=== PATIENT | female | born 1945 | race Caucasian/White ===

== ENCOUNTER 2016-06-25 19:32 | Emergency (ER) | payer MEDICARE, BC ==
[2016-06-25 19:40] VITALS: TEMP 96.9
--- NOTE | 2016-06-25 20:04 | ED ---
General Adult HPI - General Chief complaint: Extremity Injury, Lower Stated complaint: HIP PAIN Time Seen by Provider: 06/25/16 19:46 Source: EMS, RN notes reviewed Mode of arrival: EMS Limitations: no limitations - History of Present Illness Initial comments: This is a 71-year-old female who states that she fell while using the bathroom last Friday. Patient states she was not having pain until yesterday so she went to [facility]. [facility] ordered an MRI of the right hip. Patient states she never got the results of this MRI. Patient states she presents today because her pain in her right hip is worse. Patient has been able to ambulate but this is painful. Patient states the pain starts in the posterior right hip. Patient states the pain radiates down the right leg to the right thigh. Patient denies any numbness/weakness or tingling to the bilateral lower extremities. Patient states she took 2 Vicodin today that she had from 4 years ago today but this did not help the pain. Patient denies any back pain today. Patient denies any re-injury of the right hip. Patient denies any recent fever, chills, shortness breath, chest pain, abdominal pain, nausea/vomiting/diarrhea, hematuria, headache, or visual changes, or any other complaints. - Related Data Home Medications Medication Instructions Recorded Confirmed ALPRAZolam [Xanax] 0.5 mg PO TID PRN 10/24/15 06/25/16 Albuterol Sulfate [Proair Hfa] 1 - 2 puff INHALATION RT-Q6H PRN 10/24/15 Clopidogrel [Plavix] 75 mg PO DAILY 10/24/15 06/25/16 DULoxetine HCL [Cymbalta] 60 mg PO QAM 10/24/15 06/25/16 Diltiazem Cd [Cardizem Cd] 120 mg PO QAM 10/24/15 06/25/16 Docusate [Colace] 200 mg PO HS 10/24/15 06/25/16 Levalbuterol HCl [Xopenex] 1.25 mg INHALATION RT-QID PRN 10/24/15 06/25/16 Mesalamine [Asacol Hd] 800 mg PO BID 10/24/15 06/25/16 Montelukast [Singulair] 10 mg PO HS 10/24/15 06/25/16 Simvastatin [Zocor] 20 mg PO HS 10/24/15 06/25/16 metFORMIN HCL 1,000 mg PO BID 10/24/15 06/25/16 Triamterene-Hctz 37.5-25Mg 1 cap PO DAILY 06/25/16 06/25/16 [Dyazide 37.5-25 Capsule] Previous Rx's Medication Instructions Recorded HYDROcodone/APAP 5-325MG [[place] 1 tab PO Q6HR #12 tab 06/25/16 5-325] predniSONE 20 mg PO DAILY 3 Days 06/25/16 Allergies Allergy/AdvReac Type Severity Reaction Status Date / Time Iodine and Iodide Containing Allergy Rash/Hives Verified 06/25/16 20:07 Produc Sulfa (Sulfonamide Allergy Rash/Hives Verified 06/25/16 20:07 Antibiotics) adhesive AdvReac red skin, Verified 06/25/16 20:07 blisters Review of Systems ROS Statement: Those systems with pertinent positive or pertinent negative responses have been documented in the HPI. ROS Other: All systems not noted in ROS Statement are negative. Past Medical History Past Medical History: COPD, CVA/TIA, Diabetes Mellitus, Eye Disorder, Hyperlipidemia, Myocardial Infarction ([place]), Osteoarthritis (OA), Vascular Disorder Last Myocardial Infarction Date:: 2013 History of Any Multi-Drug Resistant Organisms: None Reported Past Surgical History: Adenoidectomy, Coronary Bypass/CABG, Joint Replacement, Orthopedic Surgery, Tonsillectomy Additional Past Surgical History / Comment(s): CABG x 2-triple & quad bypass, aortobifemoral bypass, right shoulder surg., right knee replaced, foot surg., eye surg., arthroscopy knee, bilateral carotidendarterectomy Past Anesthesia/Blood Transfusion Reactions: Postoperative Nausea & Vomiting ( PONV) Past Psychological History: No Psychological Hx Reported Smoking Status: Former smoker Past Alcohol Use History: None Reported Additional Past Alcohol Use History / Comment(s): quit smoking 10 yrs. ago, smoked 1ppd for 50 yrs. Past Drug Use History: None Reported - Past Family History Mother Family Medical History: No Reported History General Exam - General Exam Comments Initial Comments: General: The patient is awake and alert, in no distress, and does not appear acutely ill. Neck: The neck is supple, there is no tenderness or JVD. Cardiovascular: There is a regular rate and rhythm. No murmur, rub or gallop is appreciated. Respiratory: Lungs are clear to auscultation, respirations are non-labored, breath sounds are equal. No wheezes, stridor, rales, or rhonchi. Musculoskeletal: There is tenderness to palpation of the right posterior hip. There is no tenderness to palpation of the lumbar spine or lumbar paraspinal muscles. Full range of motion, strength 5/5 and Sensation intact. Posterior tibial pulses 2+ bilaterally. Capillary refill is normal at less than 2 seconds. Neurological: A&O x 3. CN II-XII intact, There are no obvious motor or sensory deficits. Coordination appears grossly intact. Speech is normal. Skin: Skin is warm and dry and no rashes or lesions are noted. Psychiatric: Normal mood and affect. Limitations: no limitations Course Vital Signs 06/25/16 06/25/16 19:34 21:39 Temperature 96.9 F L Pulse Rate 103 H 101 H Respiratory 20 18 Rate Blood Pressure 131/73 102/64 O2 Sat by Pulse 96 Oximetry Medical Decision Making - Medical Decision Making This is a 71-year-old female presents with right hip pain 1 week. On physical exam there is tenderness to palpation of the right posterior hip. There is no tenderness to palpation of the lumbar spine or lumbar paraspinal muscles. Full range of motion, strength 5/5 and Sensation intact. Posterior tibial pulses 2+ bilaterally. Capillary refill is normal at less than 2 seconds. Patient had previous MRIs done yesterday to the right hip at [facility]. These were uploaded and reviewed and reports were retrieved showing: X- ray right hip: Mild degenerative osteoarthritic changes right hip. No acute fractures or dislocations are evident. Report read by Dr. Blue, X-ray pelvis : No acute abnormality evident. Report read by Dr. Blue, MRI right hip without contrast: There is mild hypertrophic osteoarthritis. No fracture. No evidence of avascular necrosis. Reported by Dr. Serrato, An x-ray of the chest was also done yesterday before MRI showing no acute process. Reported by Dr. Yo. I discussed the results with patient and family at length. Patient was given IM Dilaudid in the [facility] today with pain relief. Discussed that this could be pain from sciatic nerve. I discussed stretches that could be helpful. I discussed that patient will be put on a course of prednisone and given a prescription for [place]. I discussed ice or warm heating pads to the area. I discussed return parameters. I discussed the importance of close follow-up with her primary care physician. I discussed the patient should return to the [facility] for any worsening symptoms or for any further concerns. Patient and family were receptive to this plan and patient will be discharged home. I discussed this case with Dr. Lorenzana who agrees with plan as stated above. Disposition Clinical Impression: Sciatica of right side Disposition: HOME SELF-CARE Condition: Good Instructions: Sciatica (ED) Additional Instructions: Please use medications as prescribed. Please perform stretching exercises as discussed. Please follow-up with primary care physician tomorrow. Please return to the [facility] for any worsening symptoms or for any further concerns. Prescriptions: HYDROcodone/APAP 5-325MG [[place] 5-325] 1 tab PO Q6HR #12 tab predniSONE 20 mg PO DAILY 3 Days Referrals: Sung Gaffney MD [Primary Care Provider] - 1-2 days
[2016-06-25] MEDS ORDERED: HYDROcodone/APAP 5-325MG 1 EACH TAB PO STA (20:34)
[2016-06-25] MEDS ORDERED: HYDROmorphone 1 MG/ML 1 ML SYRINGE IM STA (20:42)
[2016-06-25] MEDS ORDERED: ONDANSETRON ODT 4 MG TAB PO STA (20:57)
[2016-06-25 21:40] VITALS: BP 102/64; PULSE 101; RESP 18
== END 2016-06-25 21:40 | disposition home or self-care (01) ==
LOC: EC 19:32
DX: M54.31 Sciatica, right side (principal); W19.XXXA Unspecified fall, initial encounter; E11.9 Type 2 diabetes mellitus without complications; J44.9 Chronic obstructive pulmonary disease, unspecified; E78.5 Hyperlipidemia, unspecified; M19.90 Unspecified osteoarthritis, unspecified site; I25.2 Old myocardial infarction; Z79.02 Long term (current) use of antithrombotics/antiplatelets; Z79.84 Long term (current) use of oral hypoglycemic drugs; Z79.899 Other long term (current) drug therapy; Z88.2 Allergy status to sulfonamides; Z88.8 Allergy status to other drugs, medicaments and biological substances; Z86.73 Personal history of transient ischemic attack (TIA), and cerebral infarction without residual deficits; Z87.891 Personal history of nicotine dependence
CPT/HCPCS: 99283; 96372; J1170

== ENCOUNTER 2016-08-07 23:00 | Emergency (ER) | payer MEDICARE, BC ==
--- NOTE | 2016-08-08 00:11 | ED ---
General Adult HPI - General Chief complaint: Fall Stated complaint: FAll/Head Injury Time Seen by Provider: 08/07/16 23:59 Source: patient, family, RN notes reviewed Mode of arrival: ambulatory Limitations: no limitations - History of Present Illness Initial comments: Chief complaint and history of present illness a 71-year-old female reports that she stumbled while going up on a step falling backwards hitting the back of her head in the left occipital region on the coffee table. No loss of consciousness no nausea no vomiting no seizure activity. Patient is on Plavix because of previous heart surgery. - Related Data Home Medications Medication Instructions Recorded Confirmed ALPRAZolam [Xanax] 0.5 mg PO TID PRN 10/24/15 08/07/16 Albuterol Sulfate [Proair Hfa] 1 - 2 puff INHALATION RT-Q6H PRN 10/24/15 Clopidogrel [Plavix] 75 mg PO DAILY 10/24/15 08/07/16 DULoxetine HCL [Cymbalta] 60 mg PO QAM 10/24/15 08/07/16 Diltiazem Cd [Cardizem Cd] 120 mg PO QAM 10/24/15 08/07/16 Docusate [Colace] 200 mg PO HS 10/24/15 08/07/16 Levalbuterol HCl [Xopenex] 1.25 mg INHALATION RT-QID PRN 10/24/15 08/07/16 Mesalamine [Asacol Hd] 800 mg PO BID 10/24/15 08/07/16 Montelukast [Singulair] 10 mg PO HS 10/24/15 08/07/16 Simvastatin [Zocor] 20 mg PO HS 10/24/15 08/07/16 metFORMIN HCL 1,000 mg PO BID 10/24/15 08/07/16 Triamterene-Hctz 37.5-25Mg 1 cap PO DAILY 06/25/16 08/07/16 [Dyazide 37.5-25 Capsule] Previous Rx's Medication Instructions Recorded HYDROcodone/APAP 5-325MG [[place] 1 tab PO Q6HR #12 tab 06/25/16 5-325] predniSONE 20 mg PO DAILY 3 Days 06/25/16 Allergies Allergy/AdvReac Type Severity Reaction Status Date / Time Iodine and Iodide Containing Allergy Rash/Hives Verified 08/07/16 23:12 Produc Sulfa (Sulfonamide Allergy Rash/Hives Verified 08/07/16 23:12 Antibiotics) adhesive AdvReac red skin, Verified 08/07/16 23:12 blisters Review of Systems ROS Statement: Those systems with pertinent positive or pertinent negative responses have been documented in the HPI. Review of systems. mild headache to the left occipital region, no visual acuity changes no stiff neck or neck pain no chest pain shortness breath GI/ problems no neuro deficits. Balance is good. Alert and oriented. All systems are reviewed. Past medical problems include COPD, TIA, diabetes mellitus, bilateral cataracts removed. She also has had history of hyperlipidemia PR on Plavix with CABG twice. Also osteoarthritis. Surgeries include tonsils and adenoids, aortobifem , carotids, coronary bypass graft twice, joint replacement,. Family history no cancers. Patient quit smoking 12 years ago denies alcohol use. ROS Other: All systems not noted in ROS Statement are negative. Past Medical History Past Medical History: COPD, CVA/TIA, Diabetes Mellitus, Eye Disorder, Hyperlipidemia, Myocardial Infarction ([place]), Osteoarthritis ([place]), Vascular Disorder Last Myocardial Infarction Date:: 2013 History of Any Multi-Drug Resistant Organisms: None Reported Past Surgical History: Adenoidectomy, Coronary Bypass/CABG, Joint Replacement, Orthopedic Surgery, Tonsillectomy Additional Past Surgical History / Comment(s): CABG x 2-triple & quad bypass, aortobifemoral bypass, right shoulder surg., right knee replaced, foot surg., eye surg., arthroscopy knee, bilateral carotidendarterectomy Past Anesthesia/Blood Transfusion Reactions: Postoperative Nausea & Vomiting ( PONV) Past Psychological History: No Psychological Hx Reported Smoking Status: Former smoker Past Alcohol Use History: None Reported Additional Past Alcohol Use History / Comment(s): quit smoking 10 yrs. ago, smoked 1ppd for 50 yrs. Past Drug Use History: None Reported - Past Family History Mother Family Medical History: No Reported History General Exam - General Exam Comments Initial Comments: General: The patient is awake and alert, in no distress, and does not appear acutely ill. Here because she is on Plavix and she fell backwards bumping her head. Vital signs show temperature 97.6 pulse 91 respiratory rate 20 pulse ox 97% room air blood pressure 102/67 Eye: Pupils are equal, round and reactive to light, extra-ocular movements are intact ; there is normal conjunctiva bilaterally. No signs of icterus. Evidence of bilateral cataract surgery. Ears, nose, mouth and throat: There are moist mucous membranes and no oral lesions. There is a bump noted to the left occipital region Neck: The neck is supple, there is no tenderness , no carotid bruit. Cardiovascular: There is a regular rate and rhythm. No murmur, rub or gallop is appreciated. Respiratory: Lungs are clear to auscultation, respirations are non-labored, breath sounds are equal. No wheezes, stridor, rales, or rhonchi. Back: No back pain Musculoskeletal: Normal range of motion upper and lower extremities. Neurological: CN II-XII intact, There are no obvious motor or sensory deficits. Coordination appears grossly intact. Speech is normal. No focal or lateralizing findings. Skin: Skin is warm and dry and no rashes or lesions are noted. Limitations: no limitations Course Vital Signs 08/07/16 23:10 Temperature 97.6 F Pulse Rate 91 Respiratory 20 Rate Blood Pressure 102/67 O2 Sat by Pulse 97 Oximetry Medical Decision Making - Medical Decision Making CT the brain and cervical spine were done and reviewed by radiologist; the entire report was reviewed and the radiologist's final impression is; #1 there is no acute fracture or dislocation evident in the cervical spine. He degenerative disc disease changes at C5-C6 as discussed in the body of the report. #2 no acute intracranial hemorrhage, mass effect, or midline shift seen. Mild atrophic changes of brain. No significant change in the brain since previous study. As read by Dr. Mas Patient be advised to apply ice to her head Tylenol for pain. Follow-up with family physician return emergency room as needed. Disposition Clinical Impression: Fall, Scalp contusion Disposition: HOME SELF-CARE Condition: Fair Instructions: Fall Prevention for Older Adults (ED), Contusion in Adults (ED) Additional Instructions: Apply ice to the bump. Use Tylenol for pain. Follow-up with family physician Time of Disposition: 00:55
--- NOTE | 2016-08-08 00:49 | CT ---
EXAMINATION TYPE: CT brain tessa wo con DATE OF EXAM: 08/08/2016 12:32 AM COMPARISON: CT brain 09/08/2011 HISTORY: FALL, ON BLOOD THINNERS CT DLP: 1359.40 mGycm Automated exposure control for dose reduction was used. TECHNIQUE: CT scan of the head and cervical spine are performed without contrast. FINDINGS: There is evidence of small left occipital cephalohematoma measuring approximately 1.7 x 2.1 cm. No de finite depressed skull fracture is noted including the left occipital area. There is no acute intracranial hemorrhage, mass effect, or midline shift identified. The cortical sul ci are prominent with age-related atrophic changes of brain. No significant ventricular dilatation i s noted. Mild chronic white matter ischemic changes are noted in the periventricular white matter. Th e globes are intact and the visualized sinuses are clear. Cervical spine is visualized in its entirety from C1 through upper thoracic levels and demonstrates s atisfactory alignment without evidence of acute fracture or dislocation. Prevertebral soft tissue ap pears within normal limits. The C1-C2 articulation is unremarkable. Mild to moderate degenerative disc disease changes and the disc osteophyte complexes are noted at the level of C5-C6 with mild neural foramina narrowing more on the left side with possible nerve root co mpromise on the left side and with mild canal narrowing. Rest of the disc spaces showed no significan t disc herniation or canal narrowing. There is generalized osteopenia. IMPRESSION: 1. There is no acute fracture or dislocation evident in the cervical spine. Degenerative disc disease changes at C5-C6 as described above.. 2. No acute intracranial hemorrhage, mass effect, or midline shift is seen. Mild atrophic changes of brain. No significant change in the brain since previous study.
[2016-08-08 01:06] VITALS: BP 114/57; PULSE 90; RESP 18; TEMP 97.8
== END 2016-08-08 01:08 | disposition home or self-care (01) ==
LOC: EC 23:00
DX: S00.03XA Contusion of scalp, initial encounter (principal); E78.5 Hyperlipidemia, unspecified; E11.9 Type 2 diabetes mellitus without complications; I25.2 Old myocardial infarction; M19.90 Unspecified osteoarthritis, unspecified site; M50.322 Other cervical disc degeneration at C5-C6 level; W01.190A Fall on same level from slipping, tripping and stumbling with subsequent striking against furniture, initial encounter; Z95.1 Presence of aortocoronary bypass graft; Z79.02 Long term (current) use of antithrombotics/antiplatelets; Z79.899 Other long term (current) drug therapy; Z79.84 Long term (current) use of oral hypoglycemic drugs; Z91.048 Other nonmedicinal substance allergy status; Z87.891 Personal history of nicotine dependence; Z88.8 Allergy status to other drugs, medicaments and biological substances; Z88.2 Allergy status to sulfonamides
CPT/HCPCS: 70450; 72125; 99284

== ENCOUNTER 2018-03-02 10:37 | Day surgery (SDC) | payer MEDICARE, BC ==
[2018-03-02] MEDS ORDERED: ceFAZolin IN SWFI 2 GM/20 ML SYRINGE IVP STA (11:54)
[2018-03-02] MEDS ORDERED: LACTATED RINGERS 1,000 ML IV ONE ×2 (11:56→14:18)
[2018-03-02] MEDS ORDERED: LIDOCAINE 1% 20 ML VIAL (10MG/ML) FOR IV START INTRADERMA ONE (11:57)
[2018-03-02] MEDS ORDERED: ONDANSETRON 4 MG/2 ML VIAL IVP ONE ×2 (11:57→14:11)
[2018-03-02] MEDS ORDERED: DEXAMETHASONE SOD PHOSPHATE 10 MG/ML 1 ML VIAL IV ONE (11:58)
[2018-03-02 12:08] LABS: Glucose,Whole Blood 107 mg/dL (75-99)
--- NOTE | 2018-03-02 12:32 | P.GSHP ---
History of Present Illness H&P Date: 03/02/18 Chief Complaint: Right upper quadrant pain This is a 73-year-old female who presents today for laparoscopic cholestatic. Patient's had complaints of right quadrant pain. Her recent HIDA scan shows abnormal ejection fraction. 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 Last Myocardial Infarction Date:: 2013 History of Any Multi-Drug Resistant Organisms: None Reported Past Surgical History: Adenoidectomy, Coronary Bypass/CABG, Joint Replacement, Orthopedic Surgery, Tonsillectomy Additional Past Surgical History / Comment(s): CABG x 2-triple & quad bypass, aortobifemoral bypass, right shoulder surg plate and screws., right knee replaced, KRISTEN foot surg- BONE SPURS. arthroscopy KRISTEN knees, bilateral carotidendarterectomy Past Anesthesia/Blood Transfusion Reactions: Postoperative Nausea & Vomiting ( PONV) Smoking Status: Former smoker - Past Family History Mother Family Medical History: CVA/TIA, Diabetes Mellitus, Hyperlipidemia, Hypertension Additional Family Medical History / Comment(s): glaucoma Father Family Medical History: CVA/TIA, Hyperlipidemia, Hypertension Additional Family Medical History / Comment(s): burgers disease Medications and Allergies Home Medications Medication Instructions Recorded Confirmed Type ALPRAZolam [Xanax] 0.5 mg PO TID PRN 10/24/15 03/02/18 History Albuterol Sulfate [Proair Hfa] 1 - 2 puff INHALATION RT-Q6H PRN 10/24/15 History DULoxetine HCL [Cymbalta] 60 mg PO QAM 10/24/15 03/02/18 History Docusate [Colace] 200 mg PO HS 10/24/15 03/02/18 History Levalbuterol HCl [Xopenex] 1.25 mg INHALATION RT-QID PRN 10/24/15 03/02/18 History Mesalamine [Asacol Hd] 800 mg PO BID 10/24/15 03/02/18 History Montelukast [Singulair] 10 mg PO HS 10/24/15 03/02/18 History Simvastatin [Zocor] 20 mg PO HS 10/24/15 03/02/18 History Furosemide [Lasix] 20 mg PO DAILY PRN 02/25/18 03/02/18 History Metoprolol Succinate [Toprol Xl] 12.5 mg PO HS 02/25/18 03/02/18 History metFORMIN HCL [Glucophage] 1,000 mg PO BID 02/25/18 03/02/18 History Clopidogrel [Plavix] 75 mg PO DAILY 03/02/18 03/02/18 History Insulin Glargine [Lantus] 12 units SQ HS 03/02/18 03/02/18 History Allergies Allergy/AdvReac Type Severity Reaction Status Date / Time Iodine and Iodide Containing Allergy Rash/Hives Verified 03/02/18 11:22 Produc Sulfa (Sulfonamide Allergy Rash/Hives Verified 03/02/18 11:22 Antibiotics) adhesive AdvReac red skin, Verified 03/02/18 11:22 blisters Surgical - Exam Vital Signs Temp Pulse Resp BP Pulse Ox 97.7 F 84 16 103/57 98 03/02/18 11:31 03/02/18 11:31 03/02/18 11:31 03/02/18 11:31 03/02/18 11:31 - General well developed, no distress - Eyes PERRL - ENT normal pinna - Neck no masses - Respiratory normal expansion - Cardiovascular Rhythm: regular - Abdomen Abdomen: soft, non tender Results - Labs Abnormal Lab Results - Last 24 Hours (Table) 03/02/18 Range/Units 11:49 POC Glucose (mg/dL) 107 H (75-99) mg/dL Assessment and Plan Assessment: Right upper quadrant pain Chronically cholecystitis We'll perform laparoscopic cholecystectomy.
[2018-03-02] MEDS ORDERED: BUPIVACAIN-EPI 0.5%-1:200,000 30 ML VIAL SQ ONE ×2 (12:54→13:19)
[2018-03-02] MEDS ORDERED: MIDAZOLAM 2 MG/2 ML VIAL ONE (12:59)
[2018-03-02] MEDS ORDERED: PROPOFOL 10 MG/ML 20 ML VIAL IV ONE (12:59)
[2018-03-02] MEDS ORDERED: ONDANSETRON 4 MG/2 ML VIAL ONE (12:59)
[2018-03-02] MEDS ORDERED: LIDOCAINE 1% INJ 10MG/ML (20 ML MDV) ONE (12:59)
[2018-03-02] MEDS ORDERED: fentaNYL (PF) 50 MCG/ML 2 ML AMP ONE (12:59)
[2018-03-02] MEDS ORDERED: SUCCINYLCHOLINE CHLORIDE 100 MG/5 ML SYR IV ONE (12:59)
[2018-03-02] MEDS ORDERED: ROCURONIUM BROMIDE 10 MG/ML 10 ML VIAL IV ONE (12:59)
[2018-03-02] MEDS ORDERED: NEOSTIGMINE 1 MG/ML 10 ML VIAL ONE (12:59)
[2018-03-02] MEDS ORDERED: GLYCOPYRROLATE 0.2 MG/ML 2 ML VIAL ONE (12:59)
[2018-03-02] MEDS ORDERED: traMADol 50 MG TAB PO PRN (13:45)
[2018-03-02] MEDS ORDERED: oxyCODONE-APAP 5-325MG 1 EACH TAB PO PRN (13:45)
[2018-03-02] MEDS ORDERED: ONDANSETRON 4 MG/2 ML VIAL IVP PRN (13:45)
[2018-03-02] MEDS ORDERED: NALOXONE 0.4 MG/ML 1 ML VIAL IV PRN (13:45)
[2018-03-02] MEDS ORDERED: HYDROmorphone 1 MG/ML 1 ML SYRINGE IVP ONE ×2 (14:10→14:15)
[2018-03-02] MEDS ORDERED: diphenhydrAMINE 50 MG/ML 1 ML VIAL IVP ONE ×2 (14:28→14:31)
--- NOTE | 2018-03-02 15:53 | P.OP ---
Date of Procedure: 03/02/18 Preoperative Diagnosis: Cholecystitis Postoperative Diagnosis: Cholecystitis Procedure(s) Performed: Laparoscopic cholecystectomy Anesthesia: JASE Surgeon: Yair Chester Estimated Blood Loss (ml): 5 Pathology: other (Gallbladder) Condition: stable Disposition: PACU Description of Procedure: The patient was placed on the operating table. The patient received a general endotracheal tube anesthesia. The patients abdomen was prepped and draped in the usual sterile fashion. Through an infraumbilical stab incision, the fascia of the anterior abdominal wall was grasped with a pair of Kochers and then the Veress needle was placed in the peritoneal cavity. Position of the Veress needle was confirmed with positive drop test. The abdomen was then insufflated. After adequate insufflation, the 10 mm trocar was placed in the peritoneal cavity. Following this the laparoscope was placed in the peritoneal cavity. The patient was placed in the head-up, right side up position and then a 5 mm trocar was placed in the right lateral and right subcostal position under direct visualization. A 8 mm trocar was placed in the epigastric position. The gallbladder was grasped in the fundus and infundibulum. Traction on the gallbladder was placed in the lateral and the cephalad positions. The triangle of Calot was visualized.. The cystic duct was bluntly dissected until the union of the cystic duct and common bile duct was seen. The cystic duct was then divided and sealed with the Harmonic scissors. A PDS Endoloop was then placed throughout the cystic duct stump. The cystic artery divided and sealed with the Harmonic scissors. The gallbladder was then removed from the liver bed using Harmonic scissors. The gallbladder was then extracted through the epigastric port site. Operative field was checked for any bleeding spots and Harmonic scissors was used to coagulate the liver bed. The abdomen was irrigated. The trocars were removed. The skin was closed using interrupted 3-0 Vicryl suture. Dermabond dressing were applied. The patient tolerated the procedure well.
[2018-03-02 17:02] VITALS: BMI 25.4
[2018-03-02] MEDS ORDERED: HYDROmorphone 1 MG/ML 1 ML SYRINGE IVP PRN (17:02)
[2018-03-02] MEDS ORDERED: SODIUM CHLORIDE 0.9% 250 ML IV ONE (18:30)
[2018-03-02] MEDS ORDERED: ALBUTEROL NEBULIZED 2.5 MG/3 ML INHALATION PRN (18:31)
[2018-03-02] MEDS: LACTATED RINGERS 1,000 ML IV ONE (19:14)
[2018-03-02] MEDS ORDERED: DOCUSATE 100 MG CAP PO SCH ×2 (21:00→22:30)
[2018-03-02] MEDS ORDERED: ALPRAZolam 0.5 MG TAB PO PRN (22:00)
[2018-03-02] MEDS ORDERED: ZOLPIDEM 10 MG TAB PO PRN (22:00)
[2018-03-02] MEDS ORDERED: ATORVASTATIN 10 MG TAB PO SCH (22:15)
[2018-03-02] MEDS ORDERED: HYDROmorphone 1 MG/ML 1 ML SYRINGE IVP STA (22:51)
[2018-03-02 22:56] LABS: Glucose,Whole Blood 202 mg/dL (75-99)
[2018-03-02] MEDS ORDERED: MONTELUKAST 10 MG TAB PO SCH (23:00)
[2018-03-02] MEDS ORDERED: INSULIN DETEMIR 100 UNIT/ML 10 ML VIAL SQ SCH (23:00)
[2018-03-02] MEDS ORDERED: SODIUM CHLORIDE 0.9% 250 ML IV SCH ×2 (23:00→23:15)
[2018-03-02] MEDS: metFORMIN 500 MG TAB PO SCH (23:02)
[2018-03-02] MEDS: BALSALAZIDE DISODIUM 750 MG CAPSULE PO SCH (23:03)
[2018-03-02] MEDS: DULoxetine HCL 60 MG CAPSULE.DR PO SCH (23:17)
[2018-03-03 00:26] VITALS: RESP 18
[2018-03-03] MEDS: LACTATED RINGERS 1,000 ML IV ONE (05:56)
[2018-03-03] MEDS ORDERED: INSULIN DETEMIR 100 UNIT/ML 10 ML VIAL SQ SCH (06:15)
[2018-03-03 06:49] LABS: Glucose,Whole Blood 89 mg/dL (75-99)
[2018-03-03] MEDS: INSULIN ASPART 100 UNIT/ML 1 ML 10 ML VIAL SQ SCH ×2 (06:50→12:47)
[2018-03-03] MEDS ORDERED: SODIUM CHLORIDE 0.9% 500 ML IV ONE (08:09)
[2018-03-03] MEDS ORDERED: LACTATED RINGERS 1,000 ML IV SCH (08:15)
[2018-03-03] MEDS: DULoxetine HCL 60 MG CAPSULE.DR PO SCH (08:31)
[2018-03-03] MEDS: BALSALAZIDE DISODIUM 750 MG CAPSULE PO SCH (08:32)
[2018-03-03] MEDS: metFORMIN 500 MG TAB PO SCH (08:32)
[2018-03-03 08:52] VITALS: BP 88/54; PULSE 82; TEMP 98.2
[2018-03-03] MEDS ORDERED: ENOXAPARIN 40 MG/0.4 ML SYRINGE SQ SCH (09:00)
[2018-03-03] MEDS ORDERED: HYDROmorphone 1 MG/ML 1 ML SYRINGE IVP PRN (10:24)
--- NOTE | 2018-03-03 10:42 | P.CONS ---
History of Present Illness - Reason for Consult Consult date: 03/03/18 medical management Requesting physician: Yair Chester - Chief Complaint s/p lap jose m - History of Present Illness 73-year-old female who presented to the hospital for elective laparascopic cholecystectomy on 03/02/[address] Chester. The patient was previously admitted to the hospital from 02/26/2018-02/27/2018 for abdominal pain. She underwent HIDA scan which revealed an ejection fraction of 12%. The patient was taking Plavix at that time so she was discharged home and was scheduled to return to the hospital on 03/02/2018. The patient was examined postoperatively on the medical floor. She was hypotensive overnight and received a 250cc fluid bolus per Dr. Ag. She also has IV fluids infusing. She is requesting Dilaudid every three hours, however her blood pressure has not allowed for it. She did receive Percocet overnight which she states did not help her pain very much. She has a clear liquid breakfast tray at the bedside but patient has not ate anything at the time of examination. Patient denies nausea or vomiting. Denies shortness of breath. Denies chest pain or pressure. 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 Last Myocardial Infarction Date:: 2013 History of Any Multi-Drug Resistant Organisms: None Reported Past Surgical History: Adenoidectomy, Coronary Bypass/CABG, Joint Replacement, Orthopedic Surgery, Tonsillectomy Additional Past Surgical History / Comment(s): CABG x 2-triple & quad bypass, aortobifemoral bypass, right shoulder surg plate and screws., right knee replaced, KRISTEN foot surg- BONE SPURS. arthroscopy KRISTEN knees, bilateral carotidendarterectomy Past Anesthesia/Blood Transfusion Reactions: Postoperative Nausea & Vomiting ( PONV) Past Psychological History: No Psychological Hx Reported Additional Psychological History / Comment(s): pt lives alone in own home stated her spouse was placed in ecf 9 monhts ago. no outside services. has glucometer, and nebulizer. Smoking Status: Former smoker Past Alcohol Use History: None Reported Additional Past Alcohol Use History / Comment(s): started approx 1959 and quit 2006 smoked 1 ppd Past Drug Use History: None Reported - Past Family History Mother Family Medical History: CVA/TIA, Diabetes Mellitus, Hyperlipidemia, Hypertension Additional Family Medical History / Comment(s): glaucoma Father Family Medical History: CVA/TIA, Hyperlipidemia, Hypertension Additional Family Medical History / Comment(s): burgers disease Medications and Allergies Home Medications Medication Instructions Recorded Confirmed Type ALPRAZolam [Xanax] 0.5 mg PO TID PRN 10/24/15 03/02/18 History Albuterol Sulfate [Proair Hfa] 1 - 2 puff INHALATION RT-Q6H PRN 10/24/15 History DULoxetine HCL [Cymbalta] 60 mg PO QA 10/24/15 03/02/18 History Docusate [Colace] 200 mg PO HS 10/24/15 03/02/18 History Levalbuterol HCl [Xopenex] 1.25 mg INHALATION RT-QID PRN 10/24/15 03/02/18 History Mesalamine [Asacol Hd] 800 mg PO BID 10/24/15 03/02/18 History Montelukast [Singulair] 10 mg PO HS 10/24/15 03/02/18 History Simvastatin [Zocor] 20 mg PO 10/24/15 03/02/18 History Furosemide [Lasix] 20 mg PO DAILY PRN 02/25/18 03/02/18 History Metoprolol Succinate [Toprol Xl] 12.5 mg PO HS 02/25/18 03/02/18 History metFORMIN HCL [Glucophage] 1,000 mg PO BID 02/25/18 03/02/18 History Clopidogrel [Plavix] 75 mg PO DAILY 03/02/18 03/02/18 History Insulin Glargine [Lantus] 12 units SQ HS 03/02/18 03/02/18 History Zolpidem [Ambien] 10 mg PO HS PRN 03/02/18 03/02/18 History Allergies Allergy/AdvReac Type Severity Reaction Status Date / Time Sulfa (Sulfonamide Allergy Severe Anaphylaxis Verified 03/02/18 15:55 Antibiotics) Iodine and Iodide Containing Allergy Rash/Hives Verified 03/02/18 15:55 Produc adhesive AdvReac red skin, Verified 03/02/18 15:55 blisters Physical Exam Vitals: Vital Signs Temp Pulse Pulse Resp BP BP BP 03/03/18 08:51 98.2 F 82 18 88/54 03/03/18 06:31 103 H 18 93/67 03/03/18 06:15 97.2 F L 81 18 79/53 03/03/18 03:27 96 18 110/78 03/03/18 00:59 89/58 03/03/18 00:26 62 18 80/59 03/02/18 23:45 84/57 03/02/18 22:43 72 20 95/58 03/02/18 20:00 97.1 F L 89 18 94/63 03/02/18 19:10 73 03/02/18 18:59 71 03/02/18 18:30 97.6 F 71 18 89/56 03/02/18 17:40 97.8 F 76 16 128/68 03/02/18 17:00 20 03/02/18 16:40 98.4 F 70 18 98/65 03/02/18 16:10 97 F L 66 16 100/62 03/02/18 15:55 98 F 66 16 101/60 03/02/18 15:40 97.5 F L 64 16 103/70 03/02/18 15:25 97 F L 77 15 81/57 03/02/18 15:10 96.6 F L 73 14 104/57 03/02/18 14:43 68 16 100/59 03/02/18 14:30 65 16 107/58 03/02/18 14:23 62 16 97/56 03/02/18 14:15 69 16 89/51 03/02/18 13:59 97.6 F 75 14 105/62 03/02/18 12:02 97.7 F 84 16 103/57 03/02/18 11:31 97.7 F 84 16 103/57 Pulse Ox 03/03/18 08:51 95 03/03/18 06:31 95 03/03/18 06:15 95 03/03/18 03:27 03/03/18 00:59 03/03/18 00:26 98 03/02/18 23:45 03/02/18 22:43 100 03/02/18 20:00 100 03/02/18 19:10 03/02/18 18:59 03/02/18 18:30 99 03/02/18 17:40 96 03/02/18 17:00 03/02/18 16:40 98 03/02/18 16:10 95 03/02/18 15:55 99 03/02/18 15:40 98 03/02/18 15:25 100 03/02/18 15:10 99 03/02/18 14:43 100 03/02/18 14:30 99 03/02/18 14:23 100 03/02/18 14:15 100 03/02/18 13:59 99 03/02/18 12:02 98 03/02/18 11:31 98 Intake and Output 03/02/18 03/03/18 03/03/18 22:59 06:59 14:59 Intake Total 240 Output Total 725 500 Balance -485 -500 Intake: Oral 240 Output: Urine 725 500 Other: Voiding Method Toilet # Voids 1 Weight 58.967 kg GENERAL: This is a 73-year-old female in no apparent distress at the time of examination. HEENT: Head is atraumatic, normocephalic. Sclerae anicteric. Conjunctivae are clear. Mucus membranes of the mouth are moist. Neck is supple. RESPIRATORY: Clear to ausculation. No wheezes, rales, or rhonchi. No use of accessory muscles. Patient maintaining oxygen saturation greater than 92% CARDIOVASCULAR: Regular rate and rhythm. S1 and S2 noted. No JVD noted. No S3 or S4 noted. GASTROINTESTINAL: No distention noted. Abdomen soft and round. Bowel sounds auscultated x 4 quadrants. Appropriate surgical tenderness. Laparoscopic incision sites without signs of infection. Incision site inferior to umbilicus with small amount of dark bloody drainage. INTEGUMENTARY: No cyanosis. No jaundice. No rashes noted. No cellulitis noted. EXTREMITIES: 1+ peripheral pulses. No evidence of peripheral edema. No calf tenderness noted. NEUROLOGIC: Cranial nerves II-XII intact. PSYCHIATRIC: Awake, alert, and oriented X 3. Results Labs: Abnormal Lab Results - Last 24 Hours (Table) 03/02/18 03/02/18 Range/Units 11:49 22:39 POC Glucose (mg/dL) 107 H 202 H (75-99) mg/dL Assessment and Plan Plan: ASSESSMENT: Chronic acalculous cholecystitis, HIDA scan reveals 12% EF, s/p laparoscopic cholecystectomy, POD #1 Postoperative hypotension, likely related to anesthesia and narcotics COPD, no evidence of acute exacerbation Diabetes mellitus, type II History of CVA/TIA Hyperlipidemia History of myocardial infarction History of CABG x 3 vessels in 1995, and then x 4 vessel in 2001 History of aortobifemoral bypass History of bilateral carotid endarterectomy History of nicotine dependence, patient quit smoking in 2005 PLAN: Continue post operative care per Dr. Chester Clear liquid diet. Advance as tolerated. 500cc bolus IV fluids at 125cc/hr Encourage oral fluids Resume plavix when okay with general surgery Continue to hold lasix and metoprolol Decrease dilaudid to 0.25mg q 4 hours secondary to hypotension Do not give Dilaudid as first line pain management. Attempt oral narcotics to control pain before administering Dilaudid. Notify provider if patient continues to be hypotensive Increase activity Incentive spirometer 10 times an hour while awake Home meds as appropriate Monitor labs GI prophylaxis: Protonix 40 mg PO Daily DVT prophylaxis: Lovenox 40mg subcu daily Monitor vital signs and address as appropriate Thank you for this consultation We will continue to follow Eliza during her hospitalization Nurse practitioner note has been reviewed by physician. Signing provider agrees with the documented findings, assessment, and plan of care.
[2018-03-03 12:07] LABS: Glucose,Whole Blood 65 mg/dL (75-99)
[2018-03-03 12:24] LABS: Glucose,Whole Blood 69 mg/dL (75-99)
--- NOTE | 2018-03-03 12:25 | P.PN ---
Subjective Progress Note Date: 03/03/18 73-year-old female resting in bed. Patient states she is up ambulating several times in the hallway today reportedly asking for diet to be advanced no reports of nausea vomiting. Surgical dressing site dry. postop day 1 laparoscopic cholecystectomy for acute cholecystitis Objective - Vital Signs Vital signs: Vital Signs Temp 98.2 F 03/03/18 08:51 Pulse 82 03/03/18 08:51 Resp 18 03/03/18 08:51 BP 88/54 03/03/18 08:51 Pulse Ox 95 03/03/18 08:51 Intake & Output 03/02/18 03/03/18 03/03/18 18:59 06:59 18:59 Intake Total 1700 240 Output Total 235 1000 Balance 1465 -760 Weight 58.967 kg Intake: IV 1700 Oral 240 Output: Urine 225 1000 Estimated Blood Loss 10 Other: Voiding Method Toilet # Voids 1 - Exam Physical exam Symptoms continue to sitting up in bed appears in no acute distress states has been up ambulating in the hallway Lungs clear on room air Heart S1-S2 audible regular denying chest pain Abdomen surgical dressing site dry soft surgical tenderness appropriate nondistended reports no nausea vomiting asking for diet to be advanced states passing gas no stool Extremities no edema - Labs Labs: Abnormal Lab Results - Last 24 Hours (Table) 03/02/18 03/03/18 Range/Units 22:39 11:59 POC Glucose (mg/dL) 202 H 65 L (75-99) mg/dL Assessment and Plan Assessment: Impression Status post laparoscopic cholecystectomy done on March 02 Chronic acalculous cholecystitis COPD no evidence of an acute exacerbation Bilateral carotid enterectomy Known coronary artery disease coronary artery bypass grafting 1995 with a redo in 2001 History of a prior CVA Postoperative hypotension likely related to anesthesia and narcotics resolved Type 2 diabetes Prior nicotine dependency quit 2005 Plan adVance a diet Continue postop surgical care Pain control Restart Plavix when seen in the outpatient setting with patient's primary dementia program director Dr. Geiger Anticipate discharge soon within 24 hours DVT and GI prophylaxis The above impression and plan of care have been discussed and directed by signing physician. Nadya Mansfield nurse practitioner acting as scribe for signing physician.
[2018-03-03 12:38] LABS: Glucose,Whole Blood 69 mg/dL (75-99)
[2018-03-03 12:54] LABS: Glucose,Whole Blood 87 mg/dL (75-99)
[2018-03-03 12:54] LABS: Glucose,Whole Blood 61 mg/dL (75-99)
--- NOTE | 2018-03-03 13:10 | P.DS ---
Providers Expected date of discharge: 03/03/18 Attending physician: Yair Chester Consults: 03/02/18 13:45 Consult Physician Routine Consulting Provider: Norbert Ag Reason/Comments: med manage Do you want consulting provider notified?: Yes Primary care physician: Norbert Ag Hospital Course: 73-year-old female admitted on elective admission 02 of March to undergo laparoscopic cholecystectomy. Patient had previously been admitted to the hospital for abdominal pain and was discharged in 24 hours. The decision at that time was to have the patient stop taking Plavix and to return on the undergo the procedure. On the 02 March patient underwent a laparoscopic cholecystectomy for acute cholecystitis. The day of discharge patient was up ambulatory on the surgical incision pain control with the current analgesics no dizziness or lightheadedness no chest pain. Patient was felt to be appropriate to be discharged home impression discharge Status post laparoscopic cholecystectomy done on March 02 Chronic acalculous cholecystitis COPD no evidence of an acute exacerbation Bilateral carotid enterectomy Known coronary artery disease coronary artery bypass grafting 1995 with a redo in 2001 History of a prior CVA Postoperative hypotension likely related to anesthesia and narcotics resolved Type 2 diabetes Prior nicotine dependency quit 2005 The above impression and plan of care have been discussed and directed by signing physician. Nadya Mansfield nurse practitioner acting as scribe for signing physician. Plan - Discharge Summary Discharge Rx Participant: Yes New Discharge Prescriptions: New oxyCODONE-APAP 5-325MG [Percocet 5-325 mg] 1 each PO Q4HR PRN #18 tab PRN Reason: SEVERE Pain Continue Albuterol Sulfate [Proair Hfa] 1 - 2 puff INHALATION RT-Q6H PRN PRN Reason: copd Docusate [Colace] 200 mg PO HS ALPRAZolam [Xanax] 0.5 mg PO TID PRN PRN Reason: Anxiety Simvastatin [Zocor] 20 mg PO HS Montelukast [Singulair] 10 mg PO HS DULoxetine HCL [Cymbalta] 60 mg PO QAM Mesalamine [Asacol Hd] 800 mg PO BID Levalbuterol HCl [Xopenex] 1.25 mg INHALATION RT-QID PRN PRN Reason: copd Furosemide [Lasix] 20 mg PO DAILY PRN PRN Reason: Edema metFORMIN HCL [Glucophage] 1,000 mg PO BID Metoprolol Succinate [Toprol Xl] 12.5 mg PO HS Insulin Glargine [Lantus] 12 units SQ HS Zolpidem [Ambien] 10 mg PO HS PRN PRN Reason: Insomnia Discontinued Clopidogrel [Plavix] 75 mg PO DAILY Discharge Medication List ALPRAZolam [Xanax] 0.5 mg PO TID PRN 10/24/15 [History] Albuterol Sulfate [Proair Hfa] 1 - 2 puff INHALATION RT-Q6H PRN 10/24/15 [ History] DULoxetine HCL [Cymbalta] 60 mg PO QAM 10/24/15 [History] Docusate [Colace] 200 mg PO HS 10/24/15 [History] Levalbuterol HCl [Xopenex] 1.25 mg INHALATION RT-QID PRN 10/24/15 [History] Mesalamine [Asacol Hd] 800 mg PO BID 10/24/15 [History] Montelukast [Singulair] 10 mg PO HS 10/24/15 [History] Simvastatin [Zocor] 20 mg PO HS 10/24/15 [History] Furosemide [Lasix] 20 mg PO DAILY PRN 02/25/18 [History] Metoprolol Succinate [Toprol Xl] 12.5 mg PO HS 02/25/18 [History] metFORMIN HCL [Glucophage] 1,000 mg PO BID 02/25/18 [History] Insulin Glargine [Lantus] 12 units SQ HS 03/02/18 [History] Zolpidem [Ambien] 10 mg PO HS PRN 03/02/18 [History] oxyCODONE-APAP 5-325MG [Percocet 5-325 mg] 1 each PO Q4HR PRN #18 tab 03/03/18 [ Rx] Follow up Appointment(s)/Referral(s): Yair Chester MD [STAFF PHYSICIAN] - 1 Week Activity/Diet/Wound Care/Special Instructions: No tub bath for six weeks. Shower daily. No lifting over 10 pounds for the next 6 weeks. Could not remove the plastic dressings will be removed in the follow-up surgical visit May use ice packs to surgical site. No driving while taking narcotic for pain. Restart Plavix after a follow-up visit with primary lube technician Dr. garces Discharge Disposition: HOME SELF-CARE
[2018-03-03 17:58] LABS: Hemoglobin A1C 6.9 % (4.0-6.0)
[2018-03-03] MEDS ORDERED: DOCUSATE 100 MG CAP PO SCH (21:00)
[2018-03-04] MEDS ORDERED: PANTOPRAZOLE 40 MG TABLET PO SCH (07:30)
== END 2018-03-03 14:27 | disposition home or self-care (01) ==
LOC: OR 10:37 → 6PED 14:04 → OR 03-03 14:27
PROVIDERS: ATTEND Surgery
DX: K80.10 Calculus of gallbladder with chronic cholecystitis without obstruction (principal); J44.9 Chronic obstructive pulmonary disease, unspecified; E78.5 Hyperlipidemia, unspecified; Z86.73 Personal history of transient ischemic attack (TIA), and cerebral infarction without residual deficits; E11.9 Type 2 diabetes mellitus without complications; I25.2 Old myocardial infarction; Z87.891 Personal history of nicotine dependence; I25.10 Atherosclerotic heart disease of native coronary artery without angina pectoris; Z95.1 Presence of aortocoronary bypass graft; F41.9 Anxiety disorder, unspecified; G47.00 Insomnia, unspecified; I95.81 Postprocedural hypotension; Z79.02 Long term (current) use of antithrombotics/antiplatelets; Z79.82 Long term (current) use of aspirin; Z79.4 Long term (current) use of insulin; Z79.899 Other long term (current) drug therapy; Z88.2 Allergy status to sulfonamides; Z91.048 Other nonmedicinal substance allergy status; Z91.09 Other allergy status, other than to drugs and biological substances
CPT/HCPCS: 94640; 88304; 83036; 47562; J1200; J1100; J2405 ×2; J1650; J1170 ×2; J0690

== ENCOUNTER 2018-03-31 19:01 | Emergency (ER) | payer MEDICARE, BC ==
[2018-03-31] MEDS ORDERED: SODIUM CHLORIDE 0.9% 1,000 ML IV STA ×2 (19:37)
[2018-03-31] MEDS ORDERED: SODIUM CHLORIDE 0.9% 500 ML 500 ML IV STA (19:37)
[2018-03-31 20:37] LABS: Basophils # (A) 0.1 k/uL (0-0.2); Basophils % (A) 1 %; Eosinophils # (A) 0.2 k/uL (0-0.7); Eosinophils % (A) 2 %; HCT 44.6 % (34.0-46.0); HGB 14.4 gm/dL (11.4-16.0); Lymphocytes # (A) 1.3 k/uL (1.0-4.8); Lymphocytes % (A) 14 %; MCH 27.7 pg (25.0-35.0); MCHC 32.2 g/dL (31.0-37.0); Mean Platelet Volume 6.7; Monocytes # (A) 0.5 k/uL (0-1.0); Monocytes % (A) 5 %; Neutrophils # (A) 7.4 k/uL (1.3-7.7); Neutrophils % (A) 77 %; Platelet Count 264 k/uL (150-450); RBC 5.18 m/uL (3.80-5.40); RDW 12.8 % (11.5-15.5); WBC 9.6 k/uL (3.8-10.6)
[2018-03-31 20:45] LABS: ALT 12 U/L (9-52); AST 37 U/L (14-36); Albumin 4.4 g/dL (3.5-5.0); Alkaline Phosphatase 62 U/L (38-126); Amylase 149 U/L (30-110); Anion Gap 10 mmol/L; Blood Urea Nitrogen 22 mg/dL (7-17); Calcium 9.3 mg/dL (8.4-10.2); Carbon Dioxide 31 mmol/L (22-30); Chloride 97 mmol/L (98-107); Creatine Kinase 63 U/L (30-135); Glucose 106 mg/dL (74-99); Lipase 15 U/L (23-300); Potassium 5.2 mmol/L (3.5-5.1); Sodium 138 mmol/L (137-145); Total Bilirubin 0.9 mg/dL (0.2-1.3); Total Protein 7.5 g/dL (6.3-8.2)
[2018-03-31 20:48] LABS: INR 1.1 (<1.2); Partial Thromboplastin Time 24.5 sec (22.0-30.0); Prothrombin Time 10.7 sec (9.0-12.0)
[2018-03-31 20:56] LABS: Creatine Kinase MB 1.6 ng/mL (0.0-2.4); Troponin I <0.012 ng/mL (0.000-0.034)
[2018-03-31 21:04] LABS: Appearance,Urine Clear (Clear); Bilirubin,Urine Negative (Negative); Blood,Urine Negative (Negative); Color,Urine Yellow; Glucose,Urine (UA) Negative (Negative); Ketones,Urine Negative (Negative); Leukocyte Esterase,Urine Large (Negative); Mucus,Urine Rare /hpf; Nitrite,Urine Negative (Negative); PH, Urine 5.5 (5.0-8.0); Protein,Urine Negative (Negative); RBC,Urine 2 /hpf (0-5); Specific Gravity,Urine 1.022 (1.001-1.035); Squamous Epithelial Cell,Urine 1 /hpf (0-4); Urobilinogen,Urine <2.0 mg/dL (<2.0); WBC,Urine 15 /hpf (0-5)
[2018-03-31] MEDS ORDERED: diphenhydrAMINE 50 MG/ML 1 ML VIAL IVP STA (21:05)
[2018-03-31] MEDS ORDERED: FAMOTIDINE 20 MG/2 ML VIAL IV STA (21:05)
[2018-03-31] MEDS ORDERED: methylPREDNISolone SOD SUCCI 125 MG/2 ML VIAL IV STA (21:05)
--- NOTE | 2018-03-31 21:15 | ED ---
Abdominal Pain HPI - General Chief Complaint: Abdominal Pain Stated Complaint: side pain Time Seen by Provider: 03/31/18 19:31 Source: patient, RN notes reviewed, old records reviewed Mode of arrival: wheelchair Limitations: physical limitation - History of Present Illness Initial Comments: This is a 73-year-old female the ER for evaluation regards to abdominal pain. Patient does say for evaluation of severe left lower quadrant abdominal pain. Episodic 4 days. The pain comes on it is very bad but it does resolve. Her left flank radiating to left groin. Patient has history of diverticulosis she thinks he may have diverticulitis. She does have history of aortic issue and aortic grafting when she was 40 something years old. Patient denies current nausea vomiting denies fevers denies diarrhea denies blood in her stool. MD Complaint: abdominal pain, flank pain (L) -: days(s) (4) Location: LLQ, L flank Radiation: LLQ Severity: severe Severity scale (1-10): 3 Quality: cramping, sharp Consistency: intermittent Improves With: nothing Worsens With: nothing Associated Symptoms: denies other symptoms - Related Data Home Medications Medication Instructions Recorded Confirmed ALPRAZolam [Xanax] 0.5 mg PO TID PRN 10/24/15 03/31/18 Albuterol Sulfate [Proair Hfa] 1 - 2 puff INHALATION RT-Q6H PRN 10/24/15 DULoxetine HCL [Cymbalta] 60 mg PO QAM 10/24/15 03/31/18 Docusate [Colace] 200 mg PO HS 10/24/15 03/31/18 Levalbuterol HCl [Xopenex] 1.25 mg INHALATION RT-QID PRN 10/24/15 03/31/18 Mesalamine [Asacol Hd] 800 mg PO BID 10/24/15 03/31/18 Montelukast [Singulair] 10 mg PO HS 10/24/15 03/31/18 Simvastatin [Zocor] 20 mg PO HS 10/24/15 03/31/18 Furosemide [Lasix] 20 mg PO DAILY PRN 02/25/18 03/31/18 Metoprolol Succinate [Toprol Xl] 12.5 mg PO HS 02/25/18 03/31/18 metFORMIN HCL [Glucophage] 1,000 mg PO BID 02/25/18 03/31/18 Insulin Glargine [Lantus] 12 units SQ HS 03/02/18 03/31/18 Zolpidem [Ambien] 10 mg PO HS PRN 03/02/18 03/31/18 oxyCODONE-APAP 5-325MG [Percocet 1 tab PO Q4HR PRN 03/31/18 03/31/18 5-325 mg] Allergies Allergy/AdvReac Type Severity Reaction Status Date / Time Sulfa (Sulfonamide Allergy Severe Anaphylaxis Verified 03/31/18 19:47 Antibiotics) Iodine and Iodide Containing Allergy Rash/Hives Verified 03/31/18 19:47 Produc adhesive AdvReac red skin, Verified 03/31/18 19:47 blisters Review of Systems ROS Statement: Those systems with pertinent positive or pertinent negative responses have been documented in the HPI. ROS Other: All systems not noted in ROS Statement are negative. Past Medical History Past Medical History: COPD, CVA/TIA, Diabetes Mellitus, Eye Disorder, Hyperlipidemia, Myocardial Infarction ([place]), Osteoarthritis (OA), Vascular Disorder Additional Past Medical History / Comment(s): CATARACTS(SX DONE), PAST FALL/ BROKE RT ARM HAD SX TO REPAIR Last Myocardial Infarction Date:: 2013 History of Any Multi-Drug Resistant Organisms: None Reported Past Surgical History: Adenoidectomy, Cholecystectomy, Coronary Bypass/CABG, Joint Replacement, Orthopedic Surgery, Tonsillectomy Additional Past Surgical History / Comment(s): CABG x 2-triple & quad bypass, aortobifemoral bypass, right shoulder surg plate and screws., right knee replaced, KRISTEN foot surg- BONE SPURS. arthroscopy KRISTEN knees, bilateral carotidendarterectomy, Past Anesthesia/Blood Transfusion Reactions: Postoperative Nausea & Vomiting ( PONV) Past Psychological History: No Psychological Hx Reported Smoking Status: Former smoker Past Alcohol Use History: None Reported Past Drug Use History: None Reported - Past Family History Mother Family Medical History: CVA/TIA, Diabetes Mellitus, Hyperlipidemia, Hypertension Additional Family Medical History / Comment(s): glaucoma Father Family Medical History: CVA/TIA, Hyperlipidemia, Hypertension Additional Family Medical History / Comment(s): burgers disease General Exam Limitations: physical limitation General appearance: alert, in no apparent distress Head exam: Present: atraumatic, normocephalic, normal inspection Eye exam: Present: normal appearance, PERRL, EOMI. Absent: scleral icterus, conjunctival injection, periorbital swelling ENT exam: Present: normal exam, mucous membranes moist Neck exam: Present: normal inspection. Absent: tenderness, meningismus, lymphadenopathy Respiratory exam: Present: normal lung sounds bilaterally. Absent: respiratory distress, wheezes, rales, rhonchi, stridor Cardiovascular Exam: Present: regular rate, normal rhythm, normal heart sounds. Absent: systolic murmur, diastolic murmur, rubs, gallop, clicks GI/Abdominal exam: Present: soft, tenderness (Mild left lower quadrant), normal bowel sounds. Absent: distended, guarding, rebound, rigid Extremities exam: Present: normal inspection, full ROM, normal capillary refill. Absent: tenderness, pedal edema, joint swelling, calf tenderness Back exam: Present: normal inspection Neurological exam: Present: alert, oriented X3, CN II-XII intact Psychiatric exam: Present: normal affect, normal mood Skin exam: Present: warm, dry, intact, normal color. Absent: rash Course Vital Signs 03/31/18 03/31/18 03/31/18 19:19 20:39 20:45 Temperature 99.4 F Pulse Rate 94 89 86 Respiratory 18 16 Rate Blood Pressure 74/50 95/59 95/59 O2 Sat by Pulse 96 100 Oximetry 03/31/18 22:10 Temperature 97.0 F L Pulse Rate 87 Respiratory 15 Rate Blood Pressure 122/76 O2 Sat by Pulse 100 Oximetry - Reevaluation(s) Reevaluation #1: 03/31/18 21:14 Medical record is thoroughly reviewed Reevaluation #2: 03/31/18 21:14 Patient is not requiring anything for pain Reevaluation #3: 03/31/18 21:14 Patient states her blood pressure is been running low for quite some time secondary to blood pressure medication that she is on, has made multiple recent adjustments in dose Medical Decision Making - Medical Decision Making 73 female the ER with left lower quadrant abdominal pain, CT scans negative labwork is negative patient can be discharged - Lab Data Result diagrams: 03/31/18 20:05 03/31/18 20:05 Lab Results 03/31/18 03/31/18 03/31/18 Range/Units 19:24 20:05 20:05 WBC 9.6 (3.8-10.6) k/uL RBC 5.18 (3.80-5.40) m/uL Hgb 14.4 (11.4-16.0) gm/dL Hct 44.6 (34.0-46.0) % MCV 86.0 (80.0-100.0) fL MCH 27.7 (25.0-35.0) pg MCHC 32.2 (31.0-37.0) g/dL RDW 12.8 (11.5-15.5) % Plt Count 264 (150-450) k/uL Neutrophils % 77 % Lymphocytes % 14 % Monocytes % 5 % Eosinophils % 2 % Basophils % 1 % Neutrophils # 7.4 (1.3-7.7) k/uL Lymphocytes # 1.3 (1.0-4.8) k/uL Monocytes # 0.5 (0-1.0) k/uL Eosinophils # 0.2 (0-0.7) k/uL Basophils # 0.1 (0-0.2) k/uL PT (9.0-12.0) sec INR (<1.2) APTT (22.0-30.0) sec Sodium 138 (137-145) mmol/L Potassium 5.2 H (3.5-5.1) mmol/L Chloride 97 L (98-107) mmol/L Carbon Dioxide 31 H (22-30) mmol/L Anion Gap 10 mmol/L BUN 22 H (7-17) mg/dL Creatinine 0.69 (0.52-1.04) mg/dL Est GFR (CKD-EPI)AfAm >90 (>60 ml/min/1.73 sqM) Est GFR (CKD-EPI)NonAf 87 (>60 ml/min/1.73 sqM) Glucose 106 H (74-99) mg/dL Plasma Lactic Acid Fan (0.7-2.0) mmol/L Calcium 9.3 (8.4-10.2) mg/dL Total Bilirubin 0.9 (0.2-1.3) mg/dL AST 37 H (14-36) U/L ALT 12 (9-52) U/L Alkaline Phosphatase 62 (38-126) U/L Total Creatine Kinase (30-135) U/L CK-MB (CK-2) (0.0-2.4) ng/mL CK-MB (CK-2) Rel Index Troponin I (0.000-0.034) ng/mL Total Protein 7.5 (6.3-8.2) g/dL Albumin 4.4 (3.5-5.0) g/dL Amylase 149 H (30-110) U/L Lipase 15 L (23-300) U/L Urine Color Yellow Urine Appearance Clear (Clear) Urine pH 5.5 (5.0-8.0) Ur Specific [place] 1.022 (1.001-1.035) Urine Protein Negative (Negative) Urine Glucose (UA) Negative (Negative) Urine Ketones Negative (Negative) Urine Blood Negative (Negative) Urine Nitrite Negative (Negative) Urine Bilirubin Negative (Negative) Urine Urobilinogen <2.0 (<2.0) mg/dL Ur Leukocyte Esterase Large H (Negative) Urine RBC 2 (0-5) /hpf Urine WBC 15 H (0-5) /hpf Ur Squamous Epith Cells 1 (0-4) /hpf Urine Mucus Rare H (None) /hpf 03/31/18 03/31/18 03/31/18 Range/Units 20:05 20:05 20:05 WBC (3.8-10.6) k/uL RBC (3.80-5.40) m/uL Hgb (11.4-16.0) gm/dL Hct (34.0-46.0) % MCV (80.0-100.0) fL MCH (25.0-35.0) pg MCHC (31.0-37.0) g/dL RDW (11.5-15.5) % Plt Count (150-450) k/uL Neutrophils % % Lymphocytes % % Monocytes % % Eosinophils % % Basophils % % Neutrophils # (1.3-7.7) k/uL Lymphocytes # (1.0-4.8) k/uL Monocytes # (0-1.0) k/uL Eosinophils # (0-0.7) k/uL Basophils # (0-0.2) k/uL PT 10.7 (9.0-12.0) sec INR 1.1 (<1.2) APTT 24.5 (22.0-30.0) sec Sodium (137-145) mmol/L Potassium (3.5-5.1) mmol/L Chloride (98-107) mmol/L Carbon Dioxide (22-30) mmol/L Anion Gap mmol/L BUN (7-17) mg/dL Creatinine (0.52-1.04) mg/dL Est GFR (CKD-EPI)AfAm (>60 ml/min/1.73 sqM) Est GFR (CKD-EPI)NonAf (>60 ml/min/1.73 sqM) Glucose (74-99) mg/dL Plasma Lactic Acid Fan 1.1 (0.7-2.0) mmol/L Calcium (8.4-10.2) mg/dL Total Bilirubin (0.2-1.3) mg/dL AST (14-36) U/L ALT (9-52) U/L Alkaline Phosphatase (38-126) U/L Total Creatine Kinase 63 (30-135) U/L CK-MB (CK-2) 1.6 (0.0-2.4) ng/mL CK-MB (CK-2) Rel Index 2.5 Troponin I <0.012 (0.000-0.034) ng/mL Total Protein (6.3-8.2) g/dL Albumin (3.5-5.0) g/dL Amylase (30-110) U/L Lipase (23-300) U/L Urine Color Urine Appearance (Clear) Urine pH (5.0-8.0) Ur Specific [place] (1.001-1.035) Urine Protein (Negative) Urine Glucose (UA) (Negative) Urine Ketones (Negative) Urine Blood (Negative) Urine Nitrite (Negative) Urine Bilirubin (Negative) Urine Urobilinogen (<2.0) mg/dL Ur Leukocyte Esterase (Negative) Urine RBC (0-5) /hpf Urine WBC (0-5) /hpf Ur Squamous Epith Cells (0-4) /hpf Urine Mucus (None) /hpf - Radiology Data Radiology results: report reviewed (CT abdomen pelvis is negative for acute disease), image reviewed Disposition Clinical Impression: Abdominal pain Disposition: HOME SELF-CARE Condition: Good Instructions: Abdominal Pain (ED) Is patient prescribed a controlled substance at d/c from ED?: No Referrals: Norbert Ag DO [Primary Care Provider] - 1-2 days
[2018-03-31 22:11] VITALS: TEMP 97
--- NOTE | 2018-03-31 22:23 | CT ---
EXAMINATION TYPE: CT abdomen pelvis w con DATE OF EXAM: 03/31/2018 COMPARISON: 02/25/2018 HISTORY: LLQ pain, hx of jose m [address] DLP: 347.5 mGycm Automated exposure control for dose reduction was used. TECHNIQUE: Helical acquisition of images was performed from the lung bases through the pelvis. CONTRAST: Performed without Oral Contrast and with IV Contrast, patient injected with 100 mL of Isovu e 300. FINDINGS: LUNG BASES: 1 cm noted mildly lobulated soft tissue density pulmonary nodule noted, not seen on the p rior study because the prior study did not extend as superiorly as today's study. LIVER/GB: No significant abnormality is appreciated. PANCREAS: No significant abnormality is seen. SPLEEN: No significant abnormality is seen. ADRENALS: No significant abnormality is seen. KIDNEYS: No significant abnormality is seen. FREE AIR: No free air is visualized. RETROPERITONEAL ADENOPATHY: None visualized REPRODUCTIVE ORGANS: No significant abnormality is seen URINARY BLADDER: No significant abnormality is seen. PELVIC ADENOPATHY: None visualized. OSSEOUS STRUCTURES: No significant abnormality is seen. BOWEL: No significant abnormality is seen. VASCULATURE: No acute vascular findings. IMPRESSION: 1. NO ACUTE INTRA-ABDOMINAL PELVIC PROCESS. SPECIFICALLY, NEGATIVE LEFT LOWER QUADRANT EXAMINATION. 2. 1 CM LEFT LOWER LOBE PULMONARY NODULE. RECOMMEND SIX-WEEK FOLLOW-UP CHEST CT WITH CONTRAST TO FUL LY CHARACTERIZE THE LUNG PARENCHYMA AND SAMUEL/MEDIASTINUM.
[2018-03-31 23:16] VITALS: BP 103/70; PULSE 91; RESP 16
== END 2018-03-31 23:14 | disposition home or self-care (01) ==
LOC: EC 19:01
DX: R10.32 Left lower quadrant pain (principal); J44.9 Chronic obstructive pulmonary disease, unspecified; E78.5 Hyperlipidemia, unspecified; E11.9 Type 2 diabetes mellitus without complications; I25.2 Old myocardial infarction; Z87.891 Personal history of nicotine dependence; Z88.2 Allergy status to sulfonamides; Z91.048 Other nonmedicinal substance allergy status; Z79.4 Long term (current) use of insulin; Z79.84 Long term (current) use of oral hypoglycemic drugs; Z79.899 Other long term (current) drug therapy; Z90.49 Acquired absence of other specified parts of digestive tract; Z95.1 Presence of aortocoronary bypass graft
CPT/HCPCS: 99284; 96374; 96375 ×2; 96361 ×3; 36415; 80053; 82150; 82550; 82553; 83605; 83690; 84484; 85025; 85610; 85730; 81001; 87086; 74177; J1200; J2930; Q9967

== ENCOUNTER → 2018-04-21 | Outpatient (CLI) | payer MEDICARE, BC ==
--- NOTE | 2018-04-21 16:07 | CT ---
EXAMINATION TYPE: CT chest w con DATE OF EXAM: 04/21/2018 COMPARISON: None HISTORY: f/u lung nodule CT DLP: 245.9 mGycm Automated exposure control for dose reduction was used. CONTRAST: CT scan of the chest is performed with IV Contrast, patient injected with 100 mL of Isovue 300. FINDINGS: LUNGS: 1.2 cm lobulated pulmonary nodule left lower lobe image 37. PET CT is recommended to exclude m alignancy. The remainder of the lungs are free of additional nodular mass. No infiltrate or volume lo ss. No evidence for pleural effusion. MEDIASTINUM: There are no greater than 1 cm hilar or mediastinal lymph nodes. No pericardial effusi on is seen. Thoracic aorta is of normal caliber. The heart is not enlarged. UPPER ABDOMEN: Postoperative changes of the aortic bypass graft. Renal cystic changes noted. The gall bladder surgically absent. OTHER: No additional significant abnormality is seen. IMPRESSION: 1. Suspicious-appearing solitary left lower lobe pulmonary nodule with lobulation noted. PET/CT is re commended for further evaluation.
== END | disposition home or self-care (01) ==
LOC: RADCTMAIN 14:57
PROVIDERS: ATTEND Family Medicine
DX: R91.1 Solitary pulmonary nodule (principal)
CPT/HCPCS: 82565; 84520; 71260; 36415; Q9967

== ENCOUNTER → 2018-05-16 | Outpatient (CLI) | payer MEDICARE, BC ==
--- NOTE | 2018-05-16 16:09 | PE ---
EXAMINATION TYPE: PET CT fusion skull to thigh DATE OF EXAM: 05/16/2018 COMPARISON: Chest CT April 21, 2018. CT abdomen and pelvis March 31, 2018. HISTORY: Solitary pulmonary nodule, abnormal CT TECHNIQUE: Following the intravenous administration of 15.042 mCi of F-18 FDG, whole body images are performed from the skull base to the midthigh. Images are reviewed on the computer in the coronal, axial, and sagittal planes. Reconstructed rotating images are created on independent workstation and reviewed on the computer. A noncontrast CT is performed in conjunction with the PET scan. SCAN: Initial Scan FINDINGS: SKULL BASE AND NECK: No suspicious hypermetabolic uptake is present. CHEST, MEDIASTINUM, AND HILAR REGION: Corresponding to recent CT there is suspicious 1.3 x 1.2 cm nod ule at superior aspect left lower lobe axial image 85 with abnormal hypermetabolic uptake, max SUV is 3.73. No additional areas of suspicious hypermetabolic uptake are identified in the thorax. ABDOMEN AND PELVIS: No areas of suspicious hypermetabolic uptake are seen in the abdomen or pelvis. N o adrenal masses are noted. Normal bowel and bladder uptake is seen. OSSEOUS STRUCTURES: No new areas of suspicious hypermetabolic uptake are identified. OTHER CT: Mild to moderate calcified plaque bilateral carotid bulbs is present. Post CABG changes with mediastinal clips and sternal wires is redemonstrated. There is surgical change in right shoulder with fixating plate and screws. Calcification in the left ventricular apex could reflect product of old infarct unchanged from recent CT. Gallbladder is not visualized and presumed surgically absent. There is aortobiiliac graft with adjacent surgical clips proximally and distally redemonstrated. Lobulated heterogeneous are slightly calcified uterus could reflect underlying fibroids is redemonstr ated. Some diverticula in the left and sigmoid colon are redemonstrated. Osseous structures are demineralized. There is multilevel facet arthropathy in the lower lumbar spine . IMPRESSION: Suspicious hypermetabolic uptake in new superior left lower lobe 1.3 cm nodule worrisome for malignancy. No suspicious thoracic adenopathy or metastatic disease noted. TNM STAGING T1b, N0, M0 AJCC STAGING IA
== END | disposition home or self-care (01) ==
LOC: RADPETMAIN 11:59
PROVIDERS: ATTEND Internal Medicine Critical Care Medicine
DX: R91.1 Solitary pulmonary nodule (principal)
CPT/HCPCS: 78815; A9552

== ENCOUNTER 2018-07-02 13:45 | Emergency (ER) | payer MEDICARE, BC ==
[2018-07-02 13:53] VITALS: BP 85/59; PULSE 102; RESP 18; TEMP 98.1
--- NOTE | 2018-07-02 14:03 | ED ---
Chest Pain HPI - General Chief Complaint: Chest Pain Stated Complaint: Fall, rib injury Time Seen by Provider: 07/02/18 13:57 Source: patient, RN notes reviewed, old records reviewed Mode of arrival: wheelchair Limitations: no limitations - History of Present Illness Initial Comments: This is a 73-year-old female the ER for evaluation. Patient resents today for evaluation regarding fall. Patient recent fall with right-sided rib pain. Denies blood thinners. The fall was 4 days ago, she thought her house. Did not hit her head no loss of consciousness. Her pain has been persistent. Admits mild shortness of breath and coughing taking a deep breath pain that is increased with coughing, no significant exertional dyspnea MD Complaint: chest pain (Right-sided rib) -: days(s) (5) Onset: during rest, during exertion, other (Occurred after fall) Pain Location: right chest (Chest wall, rib) Pain Radiation: none Severity: moderate Severity scale (1-10): 3 Quality: aching Consistency: constant Improves With: nothing Worsens With: inspiration Context: trauma/injury Other Symptoms: cough Treatments Prior to Arrival: none - Related Data Home Medications Medication Instructions Recorded Confirmed ALPRAZolam [Xanax] 0.5 mg PO TID PRN 10/24/15 03/31/18 Albuterol Sulfate [Proair Hfa] 1 - 2 puff INHALATION RT-Q6H PRN 10/24/15 DULoxetine HCL [Cymbalta] 60 mg PO QAM 10/24/15 03/31/18 Docusate [Colace] 200 mg PO HS 10/24/15 03/31/18 Levalbuterol HCl [Xopenex] 1.25 mg INHALATION RT-QID PRN 10/24/15 03/31/18 Mesalamine [Asacol Hd] 800 mg PO BID 10/24/15 03/31/18 Montelukast [Singulair] 10 mg PO HS 10/24/15 03/31/18 Simvastatin [Zocor] 20 mg PO HS 10/24/15 03/31/18 Furosemide [Lasix] 20 mg PO DAILY PRN 02/25/18 03/31/18 Metoprolol Succinate [Toprol Xl] 12.5 mg PO HS 02/25/18 03/31/18 metFORMIN HCL [Glucophage] 1,000 mg PO BID 02/25/18 03/31/18 Insulin Glargine [Lantus] 12 units SQ HS 03/02/18 03/31/18 Zolpidem [Ambien] 10 mg PO HS PRN 03/02/18 03/31/18 oxyCODONE-APAP 5-325MG [Percocet 1 tab PO Q4HR PRN 03/31/18 03/31/18 5-325 mg] Allergies Allergy/AdvReac Type Severity Reaction Status Date / Time Sulfa (Sulfonamide Allergy Severe Anaphylaxis Verified 03/31/18 19:47 Antibiotics) Iodine and Iodide Containing Allergy Rash/Hives Verified 03/31/18 19:47 Produc adhesive AdvReac red skin, Verified 03/31/18 19:47 blisters Review of Systems ROS Statement: Those systems with pertinent positive or pertinent negative responses have been documented in the HPI. ROS Other: All systems not noted in ROS Statement are negative. Past Medical History Past Medical History: Cancer, COPD, CVA/TIA, Diabetes Mellitus, Eye Disorder, Hyperlipidemia, Myocardial Infarction ([place]), Osteoarthritis (OA), Vascular Disorder Additional Past Medical History / Comment(s): 07-02-17: right lung nodule- currently getting radiation treatment for this Last Myocardial Infarction Date:: 2013 History of Any Multi-Drug Resistant Organisms: None Reported Past Surgical History: Adenoidectomy, Cholecystectomy, Coronary Bypass/CABG, Joint Replacement, Orthopedic Surgery, Tonsillectomy Additional Past Surgical History / Comment(s): CABG x 2-triple & quad bypass, aortobifemoral bypass, right shoulder surg plate and screws., right knee replaced, KRISTEN foot surg- BONE SPURS. arthroscopy KRISTEN knees, bilateral carotidendarterectomy, Past Anesthesia/Blood Transfusion Reactions: Postoperative Nausea & Vomiting ( PONV) Past Psychological History: No Psychological Hx Reported Smoking Status: Former smoker Past Alcohol Use History: None Reported Past Drug Use History: None Reported - Past Family History Mother Family Medical History: No Reported History Additional Family Medical History / Comment(s): glaucoma Father Family Medical History: CVA/TIA, Hyperlipidemia, Hypertension Additional Family Medical History / Comment(s): burgers disease General Exam Limitations: no limitations General appearance: alert, in no apparent distress Head exam: Present: atraumatic, normocephalic, normal inspection Eye exam: Present: normal appearance, PERRL, EOMI. Absent: scleral icterus, conjunctival injection, periorbital swelling ENT exam: Present: normal exam, mucous membranes moist Neck exam: Present: normal inspection. Absent: tenderness, meningismus, lymphadenopathy Respiratory exam: Present: normal lung sounds bilaterally. Absent: respiratory distress, wheezes, rales, rhonchi, stridor Cardiovascular Exam: Present: normal rhythm, tachycardia, normal heart sounds, other (Right ribs, right chest wall tenderness). Absent: systolic murmur, diastolic murmur, rubs, gallop, clicks GI/Abdominal exam: Present: soft, normal bowel sounds. Absent: distended, tenderness, guarding, rebound, rigid Extremities exam: Present: normal inspection, full ROM, normal capillary refill. Absent: tenderness, pedal edema, joint swelling, calf tenderness Back exam: Present: normal inspection Neurological exam: Present: alert, oriented X3, CN II-XII intact Psychiatric exam: Present: normal affect, normal mood Skin exam: Present: warm, dry, intact, normal color. Absent: rash Course Vital Signs 07/02/18 13:46 Temperature 98.1 F Pulse Rate 102 H Respiratory 18 Rate Blood Pressure 85/59 O2 Sat by Pulse 92 L Oximetry - Reevaluation(s) Reevaluation #1: 07/02/18 14:02 Medical record is reviewed Reevaluation #2: 07/02/18 14:03 Patient in significant distress Reevaluation #3: 07/02/18 15:20 Studies X-ray right ribs is positive for rib fractures Chest Pain MDM - MDM 73 female the ER status post 5 days of fall patient does have right-sided rib fractures. Patient is on Percocet which she has been taking prior, she had run out a day and a half ago. Patient will be given some mild pain medication for home to follow-up with primary care or her pain clinic Disposition Clinical Impression: Right rib fracture, Fall Disposition: HOME SELF-CARE Condition: Good Instructions: Rib Fracture (ED) Is patient prescribed a controlled substance at d/c from ED?: Yes When asked, does pt state using other controlled substances?: No If prescribed controlled substance>3 days was MAPS reviewed?: Prescribed <3 Days If opioid is for acute pain is fill amount 7 days or less?: Yes If Rx opioid, was Start Talking consent form obtained?: Yes Referrals: Norebrt Ag DO [Primary Care Provider] - 1-2 days
--- NOTE | 2018-07-02 14:57 | XR ---
EXAMINATION TYPE: PA chest and right rib series DATE OF EXAM: 07/02/2018 COMPARISON: 08/07/2011 HISTORY: 73-year-old female with right-sided pain after fall TECHNIQUE: 5 views FINDINGS: Median sternotomy wires are present. Heart normal size. The thoracic arch calcifications. Pulmonary vasculature within normal limits. No consolidation, pneum othorax, or pleural effusion. Partially visualized sideplate and screw fixation proximal right humeru s. Acute fractures are present of the right lateral third through seventh ribs with varying nondisplacem ent to displacement up to 3 mm. IMPRESSION: 1. Acute fractures of the right third through seventh ribs with either nondisplacement or minimal dis placement up to 3 mm. 2. No pneumothorax or pleural effusion. 3. Patient's suspicious pulmonary nodule described on PET/CT of 05/16/2018 is not radiographically ap parent.
[2018-07-02] MEDS ORDERED: oxyCODONE-APAP 10-325MG 1 EACH TAB PO STA (15:21)
== END 2018-07-02 15:34 | disposition home or self-care (01) ==
LOC: EC 13:45
DX: S22.31XA Fracture of one rib, right side, initial encounter for closed fracture (principal); R06.02 Shortness of breath; R05 Cough; J44.9 Chronic obstructive pulmonary disease, unspecified; E11.9 Type 2 diabetes mellitus without complications; E78.5 Hyperlipidemia, unspecified; I25.2 Old myocardial infarction; M19.90 Unspecified osteoarthritis, unspecified site; Z86.73 Personal history of transient ischemic attack (TIA), and cerebral infarction without residual deficits; Z87.891 Personal history of nicotine dependence; Z79.4 Long term (current) use of insulin; Z79.899 Other long term (current) drug therapy; Z88.2 Allergy status to sulfonamides; Z91.048 Other nonmedicinal substance allergy status; Z88.8 Allergy status to other drugs, medicaments and biological substances; Z95.1 Presence of aortocoronary bypass graft; Z96.651 Presence of right artificial knee joint; W19.XXXA Unspecified fall, initial encounter
CPT/HCPCS: 99284

== ENCOUNTER → 2018-08-24 | Outpatient (CLI) | payer MEDICARE, BC ==
--- NOTE | 2018-08-24 16:47 | CT ---
EXAMINATION TYPE: CT chest wo con DATE OF EXAM: 08/24/2018 COMPARISON: Prior CT chest 04/21/2018 HISTORY: Malignant neoplasm lower lobe, lung cancer CT DLP: 500 mGycm. Automated Exposure Control for Dose Reduction was Utilized. TECHNIQUE: CT scan of the thorax is performed without IV contrast. FINDINGS: LUNGS: The lungs are remarkable for interval decrease in size in the left lower lobe lung nodule whic h measured on prior exam September 09 12 mm and now measures approximately 5 to 6 mm. To 1 to 2 mm nodule s are present in the right middle lobe on axial image 28, possibly there is 30 additional lesion. T here is no pleural effusion or pneumothorax seen. The tracheobronchial tree is patent. MEDIASTINUM: Lack of IV contrast is noted to limit evaluation for mediastinal and especially hilar ad enopathy. There are no definitive greater than 1 cm hilar or mediastinal lymph nodes. No cardiomega ly or pericardial effusion is seen. Calcification present in the cardiac apex is noted. There are den se coronary artery calcifications, mitral annular calcification suspected. Patient is post median adrian rnotomy. OTHER: Aorta shows calcification in the wall. Dense calcification present within the abdominal aorta and mesenteric vessels, there is likely stenosis of the abdominal aorta at the level of the superior mesenteric artery and renal arteries. Cystic foci associated with the kidneys. Surgical clips present along the abdominal aorta which are incompletely evaluated. Left-sided rib fractures 3 through 8 are noted on the right, there may been previous rib fracture third rib anteriorly on prior IMPRESSION: Patient's index lesion in the left lower lobe has decreased in size. Indeterminate small lung nodules as described of questionable clinical significance.
== END ==
LOC: RADCTMAIN 14:07
PROVIDERS: ATTEND Radiology Radiation Oncology
DX: C34.32 Malignant neoplasm of lower lobe, left bronchus or lung (principal)
CPT/HCPCS: 71250

== ENCOUNTER 2018-11-05 20:53 | Emergency (ER) | payer MEDICARE, BC ==
[2018-11-05 20:58] VITALS: RESP 18; TEMP 98.2
--- NOTE | 2018-11-05 21:40 | XR ---
EXAMINATION TYPE: XR shoulder complete RT DATE OF EXAM: 11/05/2018 COMPARISON: NONE HISTORY: Shoulder pain after 4 falls today TECHNIQUE: 3 views FINDINGS: There is a plate with numerous screws fixing an old fracture of the humeral neck. I see no definite acute fracture. Clavicle appears intact. There is no dislocation. There is subacromial joint space narrowing. IMPRESSION: Previous surgery. No acute bony abnormality.
[2018-11-05] MEDS ORDERED: Acetaminophen-Codeine 300-30mg TAB PO STA (22:08)
[2018-11-05] MEDS ORDERED: ACET/COD 300 MG/30 MG STARTER PACK 6 TAB BTL PO STA (22:08)
--- NOTE | 2018-11-05 22:28 | ED ---
General Adult HPI - General Chief complaint: Extremity Injury, Upper Stated complaint: fall/shoulder pain Time Seen by Provider: 11/05/18 21:10 Source: patient, RN notes reviewed, old records reviewed Mode of arrival: ambulatory Limitations: no limitations - History of Present Illness Initial comments: 73-year-old female patient with extensive past medical history presents to ED for mechanical fall. Patient reports that she was playing with one of her grandchildren, fell backwards hitting her right shoulder on the wall. Patient denies any head trauma. Patient denies any loss of consciousness. Patient denies any other complaints besides right shoulder pain. Patient denies all other complaints at this time. Patient is anticoagulated on Plavix. Patient denies any difficulty with ambulation, loss of bowel or bladder control. Systemic: Pt denies fatigue, myalgia, fever/chills, rash. Pt denies weakness, night sweats, weight loss. Neuro: Pt denies headache, visual disturbances, syncope or pre-syncope. HEENT: Pt denies ocular discharge or irritation, otalgia, rhinorrhea, pharyngitis or notable lymphadenopathy. Cardiopulmonary: Pt denies chest pain, SOB, heart palpitations, dyspnea on exertion. Abdominal/GI: Pt denies abdominal pain, n/v/d. : Pt denies dysuria, burning w/ urination, frequency/urgency. Denies new onset urinary or bowel incontinence. MSK: Pt denies myalgia, loss of strength or function in extremities. Neuro: Pt denies new onset weakness, paresthesias. - Related Data Home Medications Medication Instructions Recorded Confirmed ALPRAZolam [Xanax] 0.5 mg PO TID PRN 10/24/15 03/31/18 Albuterol Sulfate [Proair Hfa] 1 - 2 puff INHALATION RT-Q6H PRN 10/24/1503/10 DULoxetine HCL [Cymbalta] 60 mg PO QAM 10/24/15 03/31/18 Docusate [Colace] 200 mg PO HS 10/24/15 03/31/18 Levalbuterol HCl [Xopenex] 1.25 mg INHALATION RT-QID PRN 10/24/15 03/31/18 Mesalamine [Asacol Hd] 800 mg PO BID 10/24/15 03/31/18 Montelukast [Singulair] 10 mg PO HS 10/24/15 03/31/18 Simvastatin [Zocor] 20 mg PO HS 10/24/15 03/31/18 Furosemide [Lasix] 20 mg PO DAILY PRN 02/25/18 03/31/18 Metoprolol Succinate [Toprol Xl] 12.5 mg PO HS 02/25/18 03/31/18 metFORMIN HCL [Glucophage] 1,000 mg PO BID 02/25/18 03/31/18 Insulin Glargine [Lantus] 12 units SQ HS 03/02/18 03/31/18 Zolpidem [Ambien] 10 mg PO HS PRN 03/02/18 03/31/18 oxyCODONE-APAP 5-325MG [Percocet 1 tab PO Q4HR PRN 03/31/18 03/31/18 5-325 mg] Previous Rx's Medication Instructions Recorded HYDROcodone/APAP 5-325MG [Arab 1 tab PO Q6HR PRN #12 tab 07/02/18 5-325] Allergies Allergy/AdvReac Type Severity Reaction Status Date / Time Sulfa (Sulfonamide Allergy Severe Anaphylaxis Verified 11/05/18 20:58 Antibiotics) Iodine and Iodide Containing Allergy Rash/Hives Verified 11/05/18 20:58 Produc adhesive AdvReac red skin, Verified 11/05/18 20:58 blisters Review of Systems ROS Statement: Those systems with pertinent positive or pertinent negative responses have been documented in the HPI. ROS Other: All systems not noted in ROS Statement are negative. Past Medical History Past Medical History: Cancer, COPD, CVA/TIA, Diabetes Mellitus, Eye Disorder, Hyperlipidemia, Myocardial Infarction ([place]), Osteoarthritis (OA), Vascular Disorder Additional Past Medical History / Comment(s): 07-02-17: right lung nodule- currently getting radiation treatment for this Last Myocardial Infarction Date:: 2013 History of Any Multi-Drug Resistant Organisms: None Reported Past Surgical History: Adenoidectomy, Cholecystectomy, Coronary Bypass/CABG, Joint Replacement, Orthopedic Surgery, Tonsillectomy Additional Past Surgical History / Comment(s): CABG x 2-triple & quad bypass, aortobifemoral bypass, right shoulder surg plate and screws., right knee replaced, KRISTEN foot surg- BONE SPURS. arthroscopy KRISTEN knees, bilateral carotidendarterectomy, Past Anesthesia/Blood Transfusion Reactions: Postoperative Nausea & Vomiting (PONV) Past Psychological History: No Psychological Hx Reported Smoking Status: Former smoker Past Alcohol Use History: None Reported Past Drug Use History: None Reported - Past Family History Mother Family Medical History: No Reported History Additional Family Medical History / Comment(s): glaucoma Father Family Medical History: CVA/TIA, Hyperlipidemia, Hypertension Additional Family Medical History / Comment(s): burgers disease General Exam - General Exam Comments Initial Comments: Constitutional: NAD, AOX3, Pt has pleasant affect. HEENT: NC/AT, trachea midline, neck supple, no lymphadenopathy. Posterior pharynx non erythematous, without exudates. External ears appear normal, without discharge. Mucous membranes moist. Eyes PERRLA, EOM intact. There is no scleral icterus. No pallor noted. Cardiopulmonary: RRR, no murmurs, rubs or gallops, no JVD noted. Lungs CTAB in anterior and posterior garza. No peripheral edema. Abdominal exam: Abdomen soft and non-distended. Abdomen non-tender to palpation in all 4 quadrants. Bowel sounds active in LLQ. No hepatosplenomegaly. No ecchymosis Neuro: CN II-XII intact. No nuchal rigidity. MSK: Right shoulder mildly tender to palpation. Tenderness to palpation at the acromioclavicular joint. No ecchymoses. Mildly reduced range of motion secondary to pain. Neurovascularly intact. No other areas of tenderness to palpation. No humeral, elbow, forearm/wrist, hands tenderness to palpation. No posterior calf tenderness bilaterally, homans sign negative bilaterally. Posterior tibialis and radial pulse +2 bilaterally. Sensation intact in upper and lower extremities. Limitations: no limitations Course Vital Signs 11/05/18 20:53 Temperature 98.2 F Pulse Rate 96 Respiratory 18 Rate Blood Pressure 118/78 O2 Sat by Pulse 94 L Oximetry Medical Decision Making - Medical Decision Making 73-year-old female patient with extensive past medical history presents to ED for mechanical fall. Patient reports that she was playing with one of her grandchildren, fell backwards hitting her right shoulder on the wall. Patient denies any head trauma. Patient denies any loss of consciousness. Patient denies any other complaints besides right shoulder pain. Patient denies all other complaints at this time. Patient is anticoagulated on Plavix. Patient denies any difficulty with ambulation, loss of bowel or bladder control. Patient vital signs stable, afebrile. Physical exam displayed. Right shoulder mildly tender to palpation. Tenderness to palpation at the acromioclavicular joint. No ecchymoses. Mildly reduced range of motion secondary to pain. Neurovascularly intact. Neurologic exam within normal limits. Plain film of right shoulder displayed postoperative changes, no acute bony mildly. Patient will be placed in sling for before meals joint sprain. Patient educated extensively about range of motion exercises. Patient verbalizes understanding. Patient educated about frozen shoulder, patient verbalizes understanding. Patient will follow-up with orthopedic associates who she is previously established. Requested Dr. South. Patient will return to ER if condition worsens in any way. Case discussed with Dr. Malhotra. Disposition Clinical Impression: Sprain of acromioclavicular joint Disposition: HOME SELF-CARE Condition: Stable Instructions (If sedation given, give patient instructions): Shoulder Sprain (ED) Additional Instructions: Patient to adhere to previously discussed treatment plan and will take medication(s) as directed. Patient to follow up with PCP in 1-2 days. Patient to return to ED if symptoms do not improve. Please wear shoulder sling. Take sling off multiple times per day to do range of motion exercises of shoulder. Please follow-up with orthopedic consult in 1-2 d ays. Please follow-up with primary care provider in 1-2 days. Return to ER If condition worsens. Is patient prescribed a controlled substance at d/c from ED?: No Referrals: Norbert Ag DO [Primary Care Provider] - 1-2 days Lloyd South MD [STAFF PHYSICIAN] - 1-2 days
[2018-11-05 22:30] VITALS: BP 123/67; PULSE 89
== END 2018-11-05 22:39 | disposition home or self-care (01) ==
LOC: EC 20:53
DX: S43.51XA Sprain of right acromioclavicular joint, initial encounter (principal); J44.9 Chronic obstructive pulmonary disease, unspecified; E11.9 Type 2 diabetes mellitus without complications; I25.2 Old myocardial infarction; Z79.4 Long term (current) use of insulin; Z79.899 Other long term (current) drug therapy; Z88.2 Allergy status to sulfonamides; Z91.048 Other nonmedicinal substance allergy status; Z95.1 Presence of aortocoronary bypass graft; Z96.651 Presence of right artificial knee joint; Z87.891 Personal history of nicotine dependence; W19.XXXA Unspecified fall, initial encounter; Y92.009 Unspecified place in unspecified non-institutional (private) residence as the place of occurrence of the external cause
CPT/HCPCS: 99284

== ENCOUNTER → 2018-12-22 | Outpatient (CLI) | payer MEDICARE, BC ==
--- NOTE | 2018-12-22 15:16 | CT ---
EXAMINATION TYPE: CT chest wo con DATE OF EXAM: 12/22/2018 COMPARISON: 08/24/2018 HISTORY: 73 year-old female follow-up lung cancer TECHNIQUE: Contiguous axial scanning of the chest without IV contrast. Coronal and sagittal reconstru ctions performed. CT DLP: 450 mGycm Automated exposure control for dose reduction was used. FINDINGS: Median sternotomy wires are present with post CABG changes. There is some calcification along the cardiac apex probably myocardial representing prior apical infa rct. Heart normal size without pericardial effusion. Moderate to advanced episodic calcifications in the thoracic aorta. Suspect a severe stenosis of the left subclavian artery origin, unchanged. No thoracic lymphadenopathy by CT size criteria. Mild bronchial wall thickening A few tiny 1 to 2 mm pulmonary nodules are unchanged. Previous 5 mm left lower lobe nodule is now even less defined but still measures 5 mm. Mild adjacent groundglass density. Visualized upper abdomen shows some retroperitoneal surgical clips and severe atherosclerotic calcifi cations at the level of the renal arteries. Partially visualized 5 mm nonobstructive left renal calcu sylvia. Moderate stool burden. Bones: Endplate spondylosis mid to lower thoracic spine. IMPRESSION: 1. 5 MM LEFT LOWER LOBE PULMONARY NODULE IS SIMILAR IN SIZE BUT NOW LESS DISTINCT COMPARED TO PRIO R EXAM. FINDINGS SUGGEST TREATMENT RESPONSE. 2. MODERATE TO SEVERE ATHEROSCLEROTIC DISEASE BURDEN. SUSPECT SEVERE STENOSIS AT THE LEFT SUBCLAVIAN ARTERY ORIGIN AND WITHIN THE MID ABDOMINAL AORTA AT THE LEVEL OF THE RENAL ARTERIES.
== END | disposition home or self-care (01) ==
LOC: RADCTMAIN 12:00
PROVIDERS: ATTEND Radiology Radiation Oncology
DX: C34.32 Malignant neoplasm of lower lobe, left bronchus or lung (principal); Z87.891 Personal history of nicotine dependence; I70.0 Atherosclerosis of aorta
CPT/HCPCS: 71250

== ENCOUNTER 2020-06-01 13:58 | Emergency (ER) | payer MEDICARE, BC ==
[2020-06-01 14:12] VITALS: TEMP 98.6
[2020-06-01] MEDS ORDERED: SODIUM CHLORIDE 0.9% 1,000 ML IV STA (14:23)
--- NOTE | 2020-06-01 14:45 | XR ---
EXAMINATION TYPE: XR chest 2V DATE OF EXAM: 06/01/2020 COMPARISON: Host.9%. Prior x-ray July 02, 2028 HISTORY: Recent pacemaker/defibrillator placement. Chest pain. TECHNIQUE: Frontal and lateral views of the chest are obtained. FINDINGS: There is mild chronic parenchymal change without suspicious focal air space opacity, pleur al effusion, or pneumothorax seen. The cardiac silhouette size is slightly more prominent in the upp er limits of normal. Left ventricular apical calcification redemonstrated. Atherosclerotic calcificat ion aortic knob redemonstrated. Overlying sternal wires redemonstrated. New multilead pacemaker/defib rillator. Lead position is thought satisfactory on 2 views. The osseous structures are demineralized. Surgical change right proximal humerus is partially imaged. IMPRESSION: Chronic changes without new acute pulmonary process.
[2020-06-01 14:47] LABS: Basophils # (A) 0.1 k/uL (0-0.2); Basophils % (A) 1 %; Eosinophils # (A) 0.1 k/uL (0-0.7); Eosinophils % (A) 1 %; HCT 42.6 % (34.0-46.0); HGB 13.7 gm/dL (11.4-16.0); Lymphocytes # (A) 0.7 k/uL (1.0-4.8); Lymphocytes % (A) 6 %; MCH 28.7 pg (25.0-35.0); MCHC 32.1 g/dL (31.0-37.0); MCV 89.3 fL (80.0-100.0); Mean Platelet Volume 7.3; Monocytes # (A) 0.8 k/uL (0-1.0); Monocytes % (A) 7 %; Neutrophils # (A) 8.7 k/uL (1.3-7.7); Neutrophils % (A) 83 %; Platelet Count 162 k/uL (150-450); RBC 4.78 m/uL (3.80-5.40); WBC 10.5 k/uL (3.8-10.6)
[2020-06-01 15:00] LABS: Prothrombin Time 10.4 sec (9.0-12.0)
[2020-06-01 15:11] LABS: Albumin 3.6 g/dL (3.5-5.0); Calcium 8.6 mg/dL (8.4-10.2); Magnesium 1.6 mg/dL (1.6-2.3); Potassium 4.6 mmol/L (3.5-5.1); Total Bilirubin 0.6 mg/dL (0.2-1.3); Total Protein 6.3 g/dL (6.3-8.2)
[2020-06-01] MEDS ORDERED: DEXTROSE 5% IN WATER 100 ML with AMIODARONE 150 MG IV ONE (15:30)
[2020-06-01] MEDS ORDERED: MAGNESIUM SULFATE-D5W PMX 1 GM in DEXTROSE/WATER 1 100ML.BAG IVPB ONE (16:16)
[2020-06-01] MEDS ORDERED: AMIODARONE 360 MG in DEXTROSE 5% IN WATER 200 ML IV ONE ×2 (16:17)
--- NOTE | 2020-06-01 16:30 | ED ---
Chest Pain HPI - General Chief Complaint: Chest Pain Stated Complaint: AICD fired Time Seen by Provider: 06/01/20 14:05 Source: patient, EMS Mode of arrival: EMS Limitations: no limitations - History of Present Illness Initial Comments: Patient is a 75-year-old female past medical history of COPD, CVA, diabetes, coronary artery disease status post bypass who presents to the emergency department after she was shocked by her defibrillator. Patient states that it went off on her approximately 1.5 hours prior to hospital arrival. The ppm/defibrillator was just placed by Dr. Grant 2 days ago. Denies previous history of cardiac arrhythmias. She admits to having slight chest pain prior to discharge that her going off. Since it has been discharged she denies any pain. No shortness of breath. Denies any weakness. No confusion from the patient. She arrives and the blood pressure is low. Reports that she has had recent low blood pressures. Did not take her medications this morning due to the blood pressure being low. Patients chef head is Dr. Ayers. Denies any recent medication changes. No other alleviating, precipitating or modifying factors - Related Data Home Medications Medication Instructions Recorded Confirmed ALPRAZolam [Xanax] 0.5 mg PO TID 10/24/15 06/01/20 Albuterol Sulfate [Proair Hfa] 2 puff INHALATION RT-Q4H PRN 10/24/15 06/01/20 DULoxetine HCL [Cymbalta] 60 mg PO DAILY 10/24/15 06/01/20 Docusate [Colace] 100 mg PO BID PRN 10/24/15 06/01/20 Mesalamine [Asacol Hd] 800 mg PO BID 10/24/15 06/01/20 Montelukast [Singulair] 10 mg PO HS 10/24/15 06/01/20 Simvastatin [Zocor] 20 mg PO HS 10/24/15 06/01/20 Zolpidem [Ambien] 10 mg PO HS PRN 03/02/18 06/01/20 Carvedilol [Coreg] 3.125 mg PO BID 06/01/20 06/01/20 Clopidogrel [Plavix] 75 mg PO DAILY 06/01/20 06/01/20 Ergocalciferol [Vitamin D2] 50,000 unit PO Q14D 06/01/20 06/01/20 Furosemide [Lasix] 20 mg PO DAILY 06/01/20 06/01/20 Insulin Glargine,Hum.rec.anlog 12 - 14 unit SQ HS 06/01/20 06/01/20 [Lantus Solostar] Insulin Lispro [humaLOG Kwikpen] See Protocol SQ ACHS 06/01/20 06/01/20 Losartan [Cozaar] 25 mg PO DAILY 06/01/20 06/01/20 Potassium Bicarb-Citric Acid 25 meq PO AC-BID 06/01/20 06/01/20 [K-Lyte] levalbuterol HCL [Levalbuterol HCl] 0.63 mg INHALATION RT-Q8H 06/01/20 06/01/20 metFORMIN HCL ER [Glucophage Xr] 1,000 mg PO BID 06/01/20 06/01/20 Allergies Allergy/AdvReac Type Severity Reaction Status Date / Time Sulfa (Sulfonamide Allergy Severe Anaphylaxis Verified 06/01/20 15:37 Antibiotics) Iodine and Iodide Containing Allergy Rash/Hives Verified 06/01/20 15:37 Produc adhesive AdvReac red skin, Verified 06/01/20 15:37 blisters Review of Systems ROS Statement: Those systems with pertinent positive or pertinent negative responses have been documented in the HPI. ROS Other: All systems not noted in ROS Statement are negative. EKG Findings - EKG Comments: EKG Findings:: EKG performed at 1407 demonstrates a ventricular rate of 94. QRS 140. QRS 120. QTC of 497. It is atrial sensed and ventricularly paced. Pacemaker captures appropriately. Repeat EKG at 1607 demonstrates A. fib with a rate of 150. QRS 148. QTC of 511. Past Medical History Past Medical History: Cancer, COPD, CVA/TIA, Diabetes Mellitus, Eye Disorder, H yperlipidemia, Myocardial Infarction ([place]), Osteoarthritis (OA), Vascular Disorder Additional Past Medical History / Comment(s): 07-02-17: right lung nodule- currently getting radiation treatment for this Last Myocardial Infarction Date:: 2013 History of Any Multi-Drug Resistant Organisms: None Reported Past Surgical History: Adenoidectomy, Cholecystectomy, Coronary Bypass/CABG, Joint Replacement, Orthopedic Surgery, Tonsillectomy Additional Past Surgical History / Comment(s): CABG x 2-triple & quad bypass, aortobifemoral bypass, right shoulder surg plate and screws., right knee replaced, KRISTEN foot surg- BONE SPURS. arthroscopy KRISTEN knees, bilateral carotidendarterectomy, Past Anesthesia/Blood Transfusion Reactions: Postoperative Nausea & Vomiting (PONV) Past Psychological History: No Psychological Hx Reported Smoking Status: Former smoker Past Alcohol Use History: None Reported Past Drug Use History: None Reported - Past Family History Mother Family Medical History: No Reported History Additional Family Medical History / Comment(s): glaucoma Father Family Medical History: CVA/TIA, Hyperlipidemia, Hypertension Additional Family Medical History / Comment(s): burgers disease General Exam Limitations: no limitations General appearance: alert, in no apparent distress Head exam: Present: atraumatic, normocephalic, normal inspection Eye exam: Present: normal appearance, PERRL, EOMI. Absent: scleral icterus, conjunctival injection, periorbital swelling ENT exam: Present: normal exam, mucous membranes moist Neck exam: Present: normal inspection. Absent: tenderness, meningismus, lymphadenopathy Respiratory exam: Present: normal lung sounds bilaterally. Absent: respiratory distress, wheezes, rales, rhonchi, stridor Cardiovascular Exam: Present: regular rate, normal rhythm, normal heart sounds. Absent: systolic murmur, diastolic murmur, rubs, gallop, clicks GI/Abdominal exam: Present: soft, normal bowel sounds. Absent: distended, tenderness, guarding, rebound, rigid Extremities exam: Present: normal inspection, full ROM, normal capillary refill. Absent: tenderness, pedal edema, joint swelling, calf tenderness Back exam: Present: normal inspection Neurological exam: Present: alert, oriented X3, CN II-XII intact Psychiatric exam: Present: normal affect, normal mood Skin exam: Present: warm, dry, intact, normal color. Absent: rash Course Vital Signs 06/01/20 06/01/20 06/01/20 14:02 14:27 15:09 Temperature 98.6 F Pulse Rate 108 H 120 H 90 Respiratory 16 18 16 Rate Blood Pressure 77/57 72/40 85/68 O2 Sat by Pulse 96 95 96 Oximetry 06/01/20 06/01/20 06/01/20 15:46 16:04 16:09 Temperature Pulse Rate 92 178 H 97 Respiratory 18 18 18 Rate Blood Pressure 88/78 105/72 83/64 O2 Sat by Pulse 96 95 96 Oximetry 06/01/20 06/01/20 06/01/20 16:32 16:42 16:55 Temperature Pulse Rate 142 H 82 83 Respiratory 18 18 16 Rate Blood Pressure 86/57 77/48 81/55 O2 Sat by Pulse 96 96 96 Oximetry - Reevaluation(s) Reevaluation #1: Spoke with patients cardiology office - Dr. Grant is accepting physician of transfer 06/01/20 15:00 Chest Pain MDM - [facility] Vital patient is probably placed into room 3. A thorough history and physical exam was performed. Patient is hooked up to continuous pulse ox and cardiac monitoring. Blood pressure is noted to be low with a reading of 77/57. Patient is mentating appropriately. 12-lead EKG was performed which demonstrates a normal sinus rhythm for which the device is capturing appropriately. Patient does have multiple episodes which appear to be V. tach on the associated nurse monitoring however we are unable to capture the rhythm as they do not sustained. L aboratory studies were conducted. Patient was given a bolus of amiodarone 150 mg. patient went for a chest x-ray. I discussed the case with Dr. Grant's office who is able to speak with Dr. Grant. They report the patient had a [employer] device. He states that the patient should be transferred to [facility] and he would be the accepting physician. I did await laboratory studies which demonstrates a magnesium of 1.6. Troponin is 1.4. Device is interrogated. Device does not fire in the emergency department. The patient does have several episodes of tachycardia which are sustained and therefore we are able to repeat an EKG which demonstrates A. fib with rapid ventricular rate. I did continue the patient on an amiodarone drip. She was given 1 g of magnesium. I called and discussed the case again with Dr. Grant. For that the patient's blood pressure has been marginal since she has been here however is mentating appropriately. Dr. Grant reports that he does NOT want the patient on vasopressors if not necessary. As long as patients blood pressure is maintained and she is mentating appropriately, he would like the patient transferred on amiodarone drip. This information is relayed to the patient's and she agrees to the treatment plan. I spoke with Dr. Morgan from [facility] who accepts transfer to the ER. She is transferred in stable condition Disposition Clinical Impression: Atrial fibrillation with RVR, Hypotension Disposition: OTHER INSTITUTION NOT DEFINED Condition: Serious Is patient prescribed a controlled substance at d/c from ED?: No Referrals: Norbert Ag DO [Primary Care Provider] - 1-2 days Time of Disposition: 17:34 - Out of Hospital Transfer - Req. Specs Out of Hospital Transfer - Requested Specifics: Other Emergency Center ([facility])
[2020-06-01 16:56] VITALS: RESP 16
[2020-06-01 17:32] VITALS: BP 89/56; PULSE 80
== END 2020-06-01 17:52 | disposition other institution (70) ==
LOC: EC 13:58
DX: I48.20 Chronic atrial fibrillation, unspecified (principal); I95.9 Hypotension, unspecified; J44.9 Chronic obstructive pulmonary disease, unspecified; E11.9 Type 2 diabetes mellitus without complications; M19.90 Unspecified osteoarthritis, unspecified site; E78.5 Hyperlipidemia, unspecified; I25.2 Old myocardial infarction; Z79.4 Long term (current) use of insulin; Z79.899 Other long term (current) drug therapy; Z79.02 Long term (current) use of antithrombotics/antiplatelets; Z91.048 Other nonmedicinal substance allergy status; Z88.2 Allergy status to sulfonamides; Z86.73 Personal history of transient ischemic attack (TIA), and cerebral infarction without residual deficits; Z96.651 Presence of right artificial knee joint; Z87.891 Personal history of nicotine dependence; Z95.1 Presence of aortocoronary bypass graft
CPT/HCPCS: 36415; 93005; 80053; 83735; 84484; 85025; 85610; 85730; 71046; 99285; 96365; 96366; 96361; J0282 ×2